=== PATIENT | male | born 1970 | race Caucasian/White ===

== ENCOUNTER 2024-05-29 10:35 | Inpatient (IN) | payer SELFPAY ==
[2024-05-29] VITALS (18 sets, daily range): BP systolic 122–185; BP diastolic 72–122; PULSE 73–109; RESP 15–30; TEMP 36.3–36.4; O2SAT 98–100; BMI 30.7; BMI 30.4
--- NOTE | ~2024-05-29 | MR_ITS ---
MRI of the brain Clinical History: CVA Technique: Axial and sagittal T1-weighted images were acquired. These were followed by axial T2-weigh deisi, diffusion weighted, gradient, and FLAIR images. Following intravenous administration of 20 cc Mu ltiHance gadolinium, T1-weighted fat-sat imaging was performed in the axial and coronal planes. Findings: There is subtle patchy restricted diffusion along the insular cortex region and external ca psule of the right cerebral and STIR, compatible with acute infarct. Remainder the brain is unremarka ble. Ventricles and subarachnoid spaces are unremarkable. Orbits are unremarkable. Paranasal sinuses and m astoid air cells are clear. Major flow voids are grossly intact. Sagittal midline structures are intact. No abnormal postcontrast enhancement identified. IMPRESSION: Acute infarct involving the right insular cortex region and right external capsule. Reviewed, dictated and finalized at location . ASS SPLITTER IMPRESSION: Acute infarct involving the right insular cortex region and right external caps ule.
--- NOTE | ~2024-05-29 | CT_ITS ---
CTA brain carotid Ordering provider: Tona Howell PA-C History: . facial droop . Comparison: None. Technique: CT angiogram head and neck was performed following timed intravenous injection of contrast . Thin slice axial images and reformatted coronal images were obtained. Three dimensional reformatted images of the brain were also obtained using a [employer] workstation. Radiation reduction technique ut ilized.The dose-length product was 1923.09 mGy-cm. 100 mL Omnipaque 350 was given IV. FINDINGS: HEAD: Small caliber of the left transverse dural sinus and sigmoid sinus versus thrombosis although this li abeba --ANTERIOR AND MIDDLE CEREBRAL ARTERIES AND BRANCHES: Normal caliber and contour. --INTERNAL CAROTID ARTERIES: Mild atheromatous disease but no significant stenosis. No occlusion. --BASILAR ARTERY AND BRANCHES: Normal caliber and contour. No atheromatous disease. --POSTERIOR CEREBRAL ARTERIES: Normal caliber and contour --POSTERIOR COMMUNICATING ARTERIES: Not visualized which is probably related to congenital absence or small size. --ANEURYSM: None visualized. --BRAIN: Normal. --BONES AND SUPERFICIAL SOFT TISSUES: Normal. --PARANASAL SINUSES AND MASTOIDS: Left maxillary sinus disease otherwise, Well aerated. NECK: --RIGHT CERVICAL CAROTID SYSTEM: Mild atheromatous disease of the carotid bulb and proximal internal carotid artery without significant stenosis. Percent stenosis per NASCET criteria is 10%. No carotid dissection. Otherwise, no significant atheromatous disease or stenosis of the cervical carotid syste m. --LEFT CERVICAL CAROTID SYSTEM: Mild atheromatous disease of the carotid bulb and proximal internal c arotid artery without significant stenosis. Percent stenosis per NASCET criteria is 10%. No carotid dissection. Otherwise, no significant atheromatous disease or stenosis of the cervical carotid system. --VERTEBRAL ARTERIES: Normal caliber and contour. Slight small caliber of the left vertebral artery i nside the cardiac silhouette atherosclerotic changes. --VISUALIZED AORTIC ARCH AND BRANCHING VESSELS: Mild atheromatous disease but no significant stenosis . --SOFT TISSUES: Normal. --CERVICAL SPINE: Age appropriate degenerative changes. IMPRESSION: 1. CTA head and neck. Percent stenosis per NASCET criteria is 10 % bilaterally. 2. No definite intracranial vascular occlusion or significant narrowing. Reviewed, dictated and finalized at location A. SHER NUMERAL IMPRESSION: 1. CTA head and neck. Percent stenosis per NASCET criteria is 10 % bilaterall y. 2. No definite intracranial vascular occlusion or significant narrowing.
--- NOTE | ~2024-05-29 | XR_ITS ---
Portable chest x-ray Comparison: None Clinical History: CVA Findings: Lungs are clear, without focal consolidation or pleural effusion. Cardiomediastinal silho uette is unremarkable. Bones and soft tissues are unremarkable. Impression: Clear lungs. Reviewed, dictated and finalized at location M. ER Impression: Clear lungs.
--- NOTE | 2024-05-29 11:07 | ECG_ITS ---
Test Date: 2024-05-29 11:21:02 Measurements Intervals [place] Rate: 98 P: 30 [place]: 140 QRS: -6 QRSD: 113 T: -60 QT: 366 QTc: 468 Interpretive Statements SINUS RHYTHM POSSIBLE LEFT ATRIAL ENLARGEMENT [-0.1mV P-WAVE IN V1/V2] INFERIOR MYOCARDIAL INFARCTION , OF INDETERMINATE AGE [40+ ms Q WAVE AND/OR ST/T ABNORMALITY IN II/aVF] ANTEROLATERAL MYOCARDIAL INFARCTION , OF INDETERMINATE AGE [40+ ms Q WAVE IN I/aVL/V3-V6] No previous ECG available for comparison Electronically Signed On 05-29-2024 18:59:43 DRAWING IN HAND by Anna Thrasher
--- NOTE | 2024-05-29 11:11 | PC.NURSE ---
pt refused to put on gown
[2024-05-29 11:15] LABS: Glucose Point of Care 353 mg/dl (65-105)
[2024-05-29 11:17] LABS: Basophils Percent Auto 0.1 % (0.2-1.2); Hematocrit 47.1 % (42.0-52.0); Hemoglobin 16.9 g/dL (14.0-18.0); Immature Granulocyte Absolute 0.02 K/mm3 (0.00-0.031); Immature Granulocyte Percent A 0.2 % (0-0.5); Lymphocytes Absolute Auto 0.85 K/mm3 (0.9-3.2); Lymphocytes Percent Auto 9.6 % (18.3-44.2); Mean Corpuscular HGB Conc 35.9 g/dl (32-36); Mean Corpuscular Hemoglobin 31.5 pg (26-34); Mean Corpuscular Volume 87.7 fl (80-100); Mean Platelet Volume 10.4 fl (7.4-10.4); Monocytes Absolute Auto 0.8 K/mm3 (0.1-0.6); Monocytes Percent Auto 8.5 % (2.6-8.5); Neutrophils Absolute Auto 7.2 K/mm3 (1.3-6.7); Neutrophils Percent Auto 81.6 % (45.5-73.1); Platelet Count Result 150 k/mm3 (150-375); Red Blood Count 5.37 M/mm3 (4.6-6.20); Red Cell Distribution Width 12.1 % (11.5-14.5); White Blood Count 8.9 K/mm3 (4.5-10.0)
--- NOTE | 2024-05-29 11:24 | ED_ITS ---
HPI - Neuro Symptoms/Deficit General Chief Complaint: Neuro Symptoms/Deficit Stated Complaint: left sided facial droop Time Seen by Provider: 05/29/24 11:24 Source: patient and family Mode of arrival: ambulatory Limitations: no limitations History of Present Illness HPI Narrative: 54 YEARS OLD WHITE MALE CAME TO THE ED BY PRIVATE CAR COMPLAINING OF LEFT FACIAL DROOPING, ABNORMAL FEELING OF THE LEFT HAND NOTICED THIS MORNING. LAST TIME PATIENT WAS SEEN BY HIS FAMILY AT HIS BASELINE AND 9:00 P.M. LAST NIGHT. AT 6:00 A.M. IN THE MORNING NOTED THAT THE PATIENT HAVE SLIGHT LEFT FACIAL DROOPING, PATIENT DROVE HIMSELF TO WORK, NOTICED SOME WEIRD FEELING AT THE TIPS OF THE LEFT FINGERS, LASTED FOR HALF AN HOUR THEN RESOLVED, WAS TOLD BY 1 OF HIS COLLEAGUE AT WORK THAT HE HAVE [facility] PALSY AND NEED TO GO TO THE HOSPITAL RIGHT NOW.. ON ARRIVAL TO THE ED PATIENT IS ASYMPTOMATIC HE DENIES ANY FEVER, CHILLS, CHEST PAIN, SHORTNESS OF BREATH, HEADACHE, FOCAL WEAKNESS, LAST TIME WAS SEEN BY A PHYSICIAN OVER 20 YEARS AGO. PATIENT DOES NOT SMOKE, DRINKS OCCASIONALLY, DOES NOT USE DRUGS. Related Data Allergies Allergy/AdvReac Type Severity Reaction Status Date / Time No Known Allergies Allergy Verified 05/29/24 10:59 Review of Systems 2 Review of Systems: All systems reviewed & are unremarkable except as noted in HPI and below Exam 2 Narrative: GENERAL APPEARANCE: WELL-DEVELOPED, WELL-NOURISHED SKIN: NORMAL COLOR HEAD: NORMOCEPHALIC, NONTRAUMATIC EYES: CLEAR CONJUNCTIVA ENT: OROPHARYNX NORMAL, EARS NORMAL, NOSE NORMAL NECK: SUPPLE, NONTENDER CHEST AND RESPIRATORY: AIRWAY PATENT, NO RESPIRATORY DISTRESS, NO ACCESSORY MUSCLE USE HEART: REGULAR RATE/RHYTHM ABDOMEN: SOFT, NONTENDER, NO ORGANOMEGALY, QUIET BOWEL SOUNDS VASCULAR: NORMAL PERIPHERAL PULSES, NORMAL CAPILLARY REFILL. MUSCULOSKELETAL: NORMAL RANGE OF MOTION, NONTENDER BACK NEUROLOGIC: ALERT AND ORIENTED ?3, SLIGHT LEFT FACIAL DROOPING, NO GROSS MOTOR DEFICIT Course Reevaluation(s) Reevaluation #1: CURRENTLY PATIENT STILL ASYMPTOMATIC IN DENYING ANY FOCAL NEURO DEFICIT, FOCAL SENSORY DEFICIT OR FOCAL WEAKNESS OR CHEST PAIN OR SHORTNESS OF BREATH OR BACK PAIN. PATIENT IS VERY FRUSTRATED, HE DOES NOT BELIEVE THAT HE NEED TO BE HOSPITALIZED BECAUSE HE IS FEELING GREAT. Date: 05/29/24 Time: 15:24 Consultations Consultation #1: DR. NICOLE Date: 05/29/24 Time: 14:32 Consultation #2: DR. SINGH ADMIT TO HOSPITALIST Date: 05/29/24 Time: 14:33 Consultation #3: DR SINGH IT IS OKAY TO START PATIENT ON HEPARIN FOR IN STEMI. GET MRI OF THE BRAIN IN THE MORNING. Date: 05/29/24 Time: 15:26 Vital Signs Vital signs: Vital Signs Temperature 36.3 C L 05/29/24 10:53 Pulse Rate 109 H 05/29/24 10:53 Respiratory Rate 22 H 05/29/24 10:53 Blood Pressure 185/113 H 05/29/24 10:53 Pulse Oximetry 98 05/29/24 10:53 Oxygen Delivery Room Air 05/29/24 10:53 Temperature 36.3 C L 05/29/24 10:53 Pulse Rate 93 05/29/24 14:21 Respiratory Rate 16 05/29/24 14:21 Blood Pressure 162/98 H 05/29/24 14:21 Pulse Oximetry 99 05/29/24 14:21 Oxygen Delivery Room Air 05/29/24 10:53 MDM - Neuro Symptoms/Deficit MDM Narrative Medical decision making narrative: PATIENT CAME TO THE ED BY PRIVATE CAR WITH LEFT FACIAL DROOPING AND LEFT FINGERS WEIRD FEELING NOTICED SPEECH ASSISTANT TODAY. PATIENT IS HEALTHY OTHERWISE, DOES NOT TAKE MEDICINE AT HOME, LAST TIME WAS SEEN BY A PHYSICIAN OVER 20 YEARS. VITAL SIGNS SHOWING BLOOD PRESSURE 185/113, HEART RATE 109, RESPIRATION 22, TEMPERATURE 36.3? PHYSICAL EXAMINATION IS CONSISTENT WITH SLIGHT LEFT FACIAL DROOPING OTHERWISE NO OTHER NEUROLOGIC ABNORMALITIES. DIFFERENTIAL DIAGNOSIS INCLUDE CVA, TIA, HYPERTENSION, ELECTROLYTE ABNORMALITIES BLOOD WORKUP TODAY INCLUDES CBC, CMP, TROPONIN, PT PTT SHOWED SODIUM IS 134, GLUCOSE 345, TOTAL BILIRUBIN 1.5, TROPONIN 2.0 BETA HYDROXYBUTYRATE 0.71 URINALYSIS SHOWED 1+ PROTEIN, 3+ GLUCOSE, 2+ KETONE Differential Diagnosis Differential diagnosis: Likely other (NEW ONSET DIABETES, UNCONTROLLED HYPERTENSION, ACUTE CVA, TIA,) Medical Records Attestation: I reviewed the patient's medical records. Lab Data Attestation: I reviewed the patient's lab results. 05/29/24 11:09 05/29/24 11:09 Labs: Lab Results 05/29/24 05/29/24 05/29/24 Range/Units 11:09 11:12 13:07 WBC 8.9 (4.5-10.0) K/mm3 RBC 5.37 (4.6-6.20) M/mm3 Hgb 16.9 (14.0-18.0) g/dL Hct 47.1 (42.0-52.0) % MCV 87.7 (80-100) fl MCH 31.5 (26-34) pg MCHC 35.9 (32-36) g/dl RDW 12.1 (11.5-14.5) % Plt Count 150 (150-375) k/mm3 MPV 10.4 (7.4-10.4) fl Immature Gran % (Auto) 0.2 (0-0.5) % Neut % (Auto) 81.6 H (45.5-73.1) % Lymph % (Auto) 9.6 L (18.3-44.2) % [place] % (Auto) 8.5 (2.6-8.5) % Eos % (Auto) 0.0 (0-4.4) % Baso % (Auto) 0.1 L (0.2-1.2) % Lymph # (Auto) 0.85 L (0.9-3.2) K/mm3 [place] # (Auto) 0.8 H (0.1-0.6) K/mm3 Eos # (Auto) 0.0 (0-0.3) K/mm3 Baso # (Auto) 0.0 (0.0-0.1) K/mm3 Abs Immat Gran (auto) 0.02 (0.00-0.031) K/mm3 Absolute Neuts (auto) 7.2 H (1.3-6.7) K/mm3 Absolute Nucleated RBC 0.000 (0.0-0.012) K/mm3 Nucleated RBC % 0.0 (0.0-0.2) % PT 13.1 (11.1-14.7) Seconds INR 1.0 APTT 25.3 (22.3-36.8) Seconds Sodium 134 L (137-145) mmol/L Potassium 4.3 (3.4-5.0) mmol/L Chloride 100 (98-107) mmol/L Carbon Dioxide 25 (22-30) mmol/L Anion Gap 9 (4-12) mmol/L BUN 15 (9-20) mg/dL Creatinine 0.70 (0.7-1.3) mg/dL Estim Creat Clear Calc 119 ml/min Estimated GFR > 60 (59 - ) Glucose 345 H (65-110) mg/dL POC Capillary Glucose 353 H (65-105) mg/dl Hemoglobin A1c 11.2 H (<5.7) % Calcium 9.4 (8.4-10.2) mg/dL Total Bilirubin 1.5 H (0.2-1.3) mg/dL AST 47 (17-59) U/L ALT 32 (6-50) U/L Alkaline Phosphatase 98 (38-126) U/L Troponin I 2.000 H* (0.000-0.034) ng/mL Total Protein 8.0 (6.3-8.2) g/dL Albumin 4.7 (3.5-5.1) g/dL Beta-Hydroxybutyrate/Acetoacetate 0.71 H (0.02-0.27) mmol/L Urine Color Yellow (Yellow) Urine Appearance Clear (Clear) Urine pH 5.5 (5.0-9.0) Ur Specific [place] > 1.045 H (1.001-1.035) Urine Protein 1+ H (Negative) mg/dL Urine Glucose (UA) 3+ H (Negative) mg/dL Urine Ketones 2+ H (Negative) mg/dL Ur Blood (Man) Negative (Negative) Urine Nitrate Negative (Negative) Urine Bilirubin Negative (Negative) Urine Urobilinogen 0.2 (<2.0) mg/dL Add Ur Microanalysis Reviewed Leukocyte Esterase Rfl Negative (Negative) STACIA/UL Urine RBC 0-2 (0-2) /hpf Urine WBC 0-5 (0-3) /hpf Ur Squamous Epith Cells None seen (Few) /hpf Urine Bacteria None seen /hpf Urine Casts 0-2 05/29/24 Range/Units 14:45 WBC (4.5-10.0) K/mm3 RBC (4.6-6.20) M/mm3 Hgb (14.0-18.0) g/dL Hct (42.0-52.0) % MCV (80-100) fl MCH (26-34) pg MCHC (32-36) g/dl RDW (11.5-14.5) % Plt Count (150-375) k/mm3 MPV (7.4-10.4) fl Immature Gran % (Auto) (0-0.5) % Neut % (Auto) (45.5-73.1) % Lymph % (Auto) (18.3-44.2) % [place] % (Auto) (2.6-8.5) % Eos % (Auto) (0-4.4) % Baso % (Auto) (0.2-1.2) % Lymph # (Auto) (0.9-3.2) K/mm3 [place] # (Auto) (0.1-0.6) K/mm3 Eos # (Auto) (0-0.3) K/mm3 Baso # (Auto) (0.0-0.1) K/mm3 Abs Immat Gran (auto) (0.00-0.031) K/mm3 Absolute Neuts (auto) (1.3-6.7) K/mm3 Absolute Nucleated RBC (0.0-0.012) K/mm3 Nucleated RBC % (0.0-0.2) % PT (11.1-14.7) Seconds INR APTT (22.3-36.8) Seconds Sodium (137-145) mmol/L Potassium (3.4-5.0) mmol/L Chloride (98-107) mmol/L Carbon Dioxide (22-30) mmol/L Anion Gap (4-12) mmol/L BUN (9-20) mg/dL Creatinine (0.7-1.3) mg/dL Estim Creat Clear Calc ml/min Estimated GFR (59 - ) Glucose (65-110) mg/dL POC Capillary Glucose (65-105) mg/dl Hemoglobin A1c (<5.7) % Calcium (8.4-10.2) mg/dL Total Bilirubin (0.2-1.3) mg/dL AST (17-59) U/L ALT (6-50) U/L Alkaline Phosphatase (38-126) U/L Troponin I Pending (0.000-0.034) ng/mL Total Protein (6.3-8.2) g/dL Albumin (3.5-5.1) g/dL Beta-Hydroxybutyrate/Acetoacetate (0.02-0.27) mmol/L Urine Color (Yellow) Urine Appearance (Clear) Urine pH (5.0-9.0) Ur Specific [place] (1.001-1.035) Urine Protein (Negative) mg/dL Urine Glucose (UA) (Negative) mg/dL Urine Ketones (Negative) mg/dL Ur Blood (Man) (Negative) Urine Nitrate (Negative) Urine Bilirubin (Negative) Urine Urobilinogen (<2.0) mg/dL Add Ur Microanalysis Leukocyte Esterase Rfl (Negative) STACIA/UL Urine RBC (0-2) /hpf Urine WBC (0-3) /hpf Ur Squamous Epith Cells (Few) /hpf Urine Bacteria /hpf Urine Casts ABG Data ABG results: 05/29/24 11:45 VBG pH 7.356 VBG pCO2 44.4 VBG pO2 32.5 L VBG HCO3 24.3 O2 Delivery Device Room air O2 Liters/Min 0.0 FiO2 21 Imaging Data Radiologist's impression: Impressions Chest X-Ray 05/29/24 11:34 Impression: Clear lungs. Head/Neck CTA 05/29/24 12:48 IMPRESSION: 1. CTA head and neck. Percent stenosis per NASCET criteria is 10 % bilaterally. 2. No definite intracranial vascular occlusion or significant narrowing. Critical Care Time Critical Care Time Critical Care Time: Yes Total Critical Care Time: 30 Discharge Plan Discharge Clinical Impression: Cerebrovascular accident, Hypertension, Acute hyperglycemia Patient Disposition: Still a Patient Condition: Stable Patient Language: Latvian Follow-up/Referrals: PHYSICIAN,CUSTOMER SUPPLY COORDINATOR [Non-Staff] - Quality Stroke Date of last known normal: 05/29/24 Stroke Scale Stroke Scale 1: Stroke scale date:: 05/29/24 1a Level of consciousness: alert-0 1b Level of consciousness questions: answers both correctly-0 1c Level of consciousness commands: obeys both correctly-0 2 Best gaze: normal-0 3 Visual: no visual loss-0 4 Facial palsy: minor paralysis-1 5a Motor: left arm: no drift-0 5b Motor: right arm: no drift-0 6a Motor: left leg: no drift-0 6b Motor: right leg: no drift-0 7 Limb ataxia: absent-0 8 Sensory: normal-0 9 Best language: no aphasia-0 10 Dysarthria: normal-0 11 Extinction and inattention: no abnormality-0 Level:: 1
[2024-05-29 11:29] LABS: Prothrombin Time 13.1 Seconds (11.1-14.7)
[2024-05-29 11:30] LABS: Partial Thromboplastin Time 25.3 Seconds (22.3-36.8)
[2024-05-29 11:32] LABS: Alanine Aminotransferase 32 U/L (6-50); Albumin Level 4.7 g/dL (3.5-5.1); Alkaline Phosphatase 98 U/L (38-126); Anion Gap 9 mmol/L (4-12); Aspartate Amino Transferase 47 U/L (17-59); Bilirubin,Total 1.5 mg/dL (0.2-1.3); Blood Urea Nitrogen 15 mg/dL (9-20); Calcium 9.4 mg/dL (8.4-10.2); Carbon Dioxide 25 mmol/L (22-30); Chloride 100 mmol/L (98-107); Estimated CRCL calculation 119 ml/min; Estimated Glomerular Filt Rate > 60; Glucose 345 mg/dL (65-110); Potassium 4.3 mmol/L (3.4-5.0); Sodium 134 mmol/L (137-145)
[2024-05-29 11:52] LABS: Fractional Inspired Oxygen 21 %; HCO3 VBG 24.3 mEq/l (24.0-30.0); PCO2 VBG 44.4 mmHg (42.0-48.0); PO2 VBG 32.5 mmHg (35.0-45.0)
[2024-05-29 11:54] LABS: Device ROOM AIR; pH VBG 7.356 (7.300-7.400)
[2024-05-29] MEDS: METOPROLOL TARTRATE INJ 5 MG/5 ML VIAL 10 MG IV PUSH (11:59)
[2024-05-29] MEDS: SODIUM CHLORIDE 0.9% IV 1,000 ML 999 ML IV CONT (11:59)
[2024-05-29 12:06] LABS: Beta-Hydroxybutyrate/Acetoacetate 0.71 mmol/L (0.02-0.27)
[2024-05-29 12:09] LABS: Hemoglobin A1C 11.2 % (<5.7)
[2024-05-29 13:31] LABS: Add Urine Microscopic? YES; Appearance Urine Clear (Clear); Bacteria Urine None Seen /hpf; Bilirubin Urine Negative (Negative); Blood Urine Negative (Negative); Color Urine Yellow (Yellow); Glucose Urine UA 3+ mg/dL (Negative); Ketones Urine 2+ mg/dL (Negative); Leukocyte Esterase Ur Negative LEU/UL (Negative); Need Manual Microscopic Reviewed; Nitrate Urine Negative (Negative); Non Pathogenic Casts 0-2; Protein Urine 1+ mg/dL (Negative); RBC Urine 0-2 /hpf (0-2); Specific Grav Ur > 1.045 (1.001-1.035); Squamous Epithelial Cell Urine None Seen /hpf (Few); Urobilinogen Urine 0.2 mg/dL (<2.0); WBC Urine 0-5 /hpf (0-3); pH Urine 5.5 (5.0-9.0)
[2024-05-29] MEDS: ASPIRIN 81 MG CHEWABLE TABLET 324 MG PO (14:19)
--- NOTE | 2024-05-29 14:34 | ECG_ITS ---
Test Date: 2024-05-29 14:50:17 Measurements Intervals [place] Rate: 83 P: 45 [place]: 142 QRS: 8 QRSD: 95 T: -67 QT: 415 QTc: 490 Interpretive Statements SINUS RHYTHM POSSIBLE LEFT ATRIAL ENLARGEMENT [-0.1mV P-WAVE IN V1/V2] SUSPECT RECENT INF-LAT mi Compared to ECG 05/29/2024 11:21:02 No significant changes Electronically Signed On 05-29-2024 19:02:45 FACING MACHINE OPERATOR by Anna Thrsaher
[2024-05-29 15:40] LABS: Glucose Point of Care 275 mg/dl (65-105)
[2024-05-29] MEDS: HEPARIN SOD/D5W 100 UNITS/ML 25,000 UNITS/250 ML BAG 10 UNITS IV CONT (15:42)
[2024-05-29] MEDS: HEPARIN SODIUM 5,000 UNITS/ML VIAL 4000 UNITS IV PUSH ×2 (15:42→23:32)
[2024-05-29] MEDS: METOPROLOL TARTRATE INJ 5 MG/5 ML VIAL IV PUSH ×3 (16:28→16:39)
[2024-05-29] MEDS: ATORVASTATIN 40 MG TABLET PO (16:38)
[2024-05-29 16:56] LABS: Basophils Percent Auto 0.2 % (0.2-1.2); Eosinophils Percent Auto 0.2 % (0-4.4); Hematocrit 44.3 % (42.0-52.0); Immature Granulocyte Absolute 0.03 K/mm3 (0.00-0.031); Immature Granulocyte Percent A 0.4 % (0-0.5); Lymphocytes Absolute Auto 1.17 K/mm3 (0.9-3.2); Lymphocytes Percent Auto 13.8 % (18.3-44.2); Mean Corpuscular HGB Conc 36.1 g/dl (32-36); Mean Corpuscular Hemoglobin 31.7 pg (26-34); Mean Corpuscular Volume 87.7 fl (80-100); Mean Platelet Volume 10.8 fl (7.4-10.4); Monocytes Absolute Auto 0.8 K/mm3 (0.1-0.6); Neutrophils Absolute Auto 6.5 K/mm3 (1.3-6.7); Neutrophils Percent Auto 76.4 % (45.5-73.1); Platelet Count Result 151 k/mm3 (150-375); Red Blood Count 5.05 M/mm3 (4.6-6.20); Red Cell Distribution Width 12.1 % (11.5-14.5); White Blood Count 8.5 K/mm3 (4.5-10.0)
--- NOTE | 2024-05-29 17:09 | P.HP_ITS ---
H&P: HPI History of Present Illness Date/Time: 05/29/24 17:09 Chief Complaint: Left Sided Facial Droop, Dysarthria Narrative: 54 y/o M presents here with left-sided facial droop and dysarthria with no significant (known) past medical history. The patient presents here via personal vehicle for further evaluation of left- sided facial droop, numbness to left hand, and slurred speech. The patient was last seen at his baseline at 9:00 p.m. last night (05/28). Patient woke this morning around 06:00 a.m.. Per the patient's , she noted he that he had a mild left facial droop around 6:00 a.m. She did not notice any dysarthria. Patient also reports noticing that he had numbness/odd sensation to the tips of his left fingers which lasted for approximately 30 minutes and resolved without intervention. Did have some difficulty screwing a cap on this morning dropping the cap. The patient elected to go to work driving himself there, arrived around 7-7:15. Around 07:40 a.m. his coworker noted drooping to his left lip and speech changes. Patient elected to come to the ER for further evaluation after a co-worker raise concerns for Maldonado's Palsy. The patient is currently not reporting any dysarthria (has soft sh quality to s sounds at baseline) or focal numbness/weakness. Denies vision changes, headache, dizziness, changes in gait, balance disturbance, ataxia. He does not follow with a PCP, last saw a provider over 20 years ago. Denies tobacco use. Occasional EtOH use - 2-3 times per week, 2-3. Denies recreational drug use. Denies polydipsia, polyuria, fatigue, chest pain, shortness of breath, diaphoresis, nausea, vomiting, increased hunger, GERD-like symptoms, dizziness, or pre-syncope. Initial VS at presentation: 97.4? F, HR 109, RR 22, 185/113, 98% on RA. ED workup showed: No leukocytosis, no anemia, normal coags, pH normal on VBG, sodium 134, creatinine 0.7 and GFR >60, initial glucose 345, A1c 11.2, initial troponin 2.0, beta hydroxy 0.71. UA showed high specific gravity, 1+ protein, 3+ glucose, 2+ ketones otherwise no indicators for UTI. CXR showed clear lungs and unremarkable cardiomediastinal silhouette. Head/neck CTA showed 10% stenosis per NASCET criteria and no definite intracranial vascular occlusion or significant narrowing. Initial EKG showed sinus rhythm, rate 98, possible left atrial enlargement, inferior AK of indeterminate age, anterolateral AK of indeterminate age (no EKG available for comparison and awaiting formal read). Review of Systems Review of Systems: All systems reviewed & are unremarkable except as noted in HPI and below [facility] Family History Family History Mother Hypertension Diabetes mellitus Cardiac dysrhythmia Father Hypertension Cerebrovascular accident Grandparent Dementia Social History Social History Smoking status: Never smoker Alcohol intake: current Drinks per week: 4 Substance use: never Do You Feel Safe in your Home?: Yes Lack of Transportation: No Lack of Food: Never True Current Housing: I Have Housing Concerned About Future Housing: No Difficulty Paying Gas/Electric Bills: No Difficulty Paying for Meds: No Currently Unemployed: No Education: Bachelor's Degree Difficulty w/ Childcare or Family Care: No Spiritual care concerns: No Meds Home Medications and Allergies Home Medications ?Medication ?Instructions ?Recorded ?Confirmed ?Type No Home Medications 05/30/24 05/30/24 History Allergies Allergy/AdvReac Type Severity Reaction Status Date / Time No Known Allergies Allergy Verified 05/29/24 10:59 Vital Signs Vital Signs - 24 hr 05/29/24 10:53 05/29/24 10:59 05/29/24 11:58 Temperature 97.4 F L Pulse Rate 109 H 104 H 104 H Respiratory Rate 22 H 17 20 Blood Pressure 185/113 H 185/113 H 181/107 H Pulse Oximetry 98 98 Oxygen Delivery Room Air 05/29/24 11:59 05/29/24 11:59 05/29/24 12:07 Temperature Pulse Rate 102 H 102 H 82 Respiratory Rate 30 H 22 H Blood Pressure 181/107 H 150/103 H Pulse Oximetry 98 Oxygen Delivery 05/29/24 12:17 05/29/24 13:09 05/29/24 14:21 Temperature Pulse Rate 80 81 93 Respiratory Rate 22 H 20 16 Blood Pressure 152/122 H 144/118 H 162/98 H Pulse Oximetry 100 99 Oxygen Delivery 05/29/24 16:28 05/29/24 16:28 05/29/24 16:33 Temperature Pulse Rate 86 75 Respiratory Rate Blood Pressure 159/88 H Pulse Oximetry Oxygen Delivery 05/29/24 16:33 05/29/24 16:38 05/29/24 16:39 Temperature Pulse Rate 73 Respiratory Rate Blood Pressure 148/88 H 136/91 H Pulse Oximetry Oxygen Delivery Exam Narrative: very minimal left facial droop. otherwise normal exam. Const: General: comfortable and no acute distress Other: , male, nontoxic appearance HENMT: Face/Nose/Sinus: Normal nares present Mouth: Yes moist mucous membranes Eyes: General: appearance normal, both eyes and all related structures Sclera: sclerae normal Pupils: Equal, round and reactive pupils present EOM: EOMs intact bilaterally Resp: Effort & Inspection: normal respiratory effort Auscultation: clear to auscultation bilaterally Cardio: Rate: regular rate Rhythm: regular rhythm Other: S1-S2 present without murmur, rub, ectopy GI: Other: Abdomen soft, nondistended, nontender. Normoactive bowel sounds in all quadrants. Skin: General skin exam: normal color and no rashes or lesions noted Other: Healing wound with no active drainage or erythema to medial malleolus of right lower extremity. Neuro: Other: Initial NIHSS 1a: Level of Consciousness 0 1b: LOC Questions 0 1c:?LOC Tasks 0 2:?Best Gaze 0 3:?Visual?[place] 0 4: Facial Palsy 1 (minimal left facial d clifford) 5a: Motor Arm?R 0 5b: Motor Arm L 0 6a:?Motor Leg R 0 6a:?Motor Leg L 0 7: Limb Ataxia 0 8: Sensation 0 9:?Language/Aphasia 0 10:?Dysarthria? 0 11: Extinction and Inattention 0 Total: 1 Patient moving all extremities, A&O x4, no numbness or tingling. Very slight facial droop to left with no flattening of the nasolabial fold. No gaze palsy. horizontal nystagmus (patient denied dizziness) noted with gaze exam. Extrem: General: normal to inspection Psych: Mental Status: mental status grossly normal Affect: Hostile affect present Attitude: Belligerent attititude/behavior present H&P: Results Labs Labs: Short CBC 05/29/24 Range/Units 11:09 WBC 8.9 (4.5-10.0) K/mm3 Hgb 16.9 (14.0-18.0) g/dL Hct 47.1 (42.0-52.0) % Plt Count 150 (150-375) k/mm3 BMP 05/29/24 11:09 Sodium 134 L Potassium 4.3 Chloride 100 Carbon Dioxide 25 BUN 15 Creatinine 0.70 Glucose 345 H Calcium 9.4 Cardiac Enzymes 05/29/24 05/29/24 Range/Units 11:09 14:45 Troponin I 2.000 H* 3.100 H* D (0.000-0.034) ng/mL Liver Function 05/29/24 Range/Units 11:09 Total Bilirubin 1.5 H (0.2-1.3) mg/dL AST 47 (17-59) U/L ALT 32 (6-50) U/L Alkaline Phosphatase 98 (38-126) U/L Albumin 4.7 (3.5-5.1) g/dL Urine 05/29/24 Range/Units 13:07 Urine Color Yellow (Yellow) Urine Appearance Clear (Clear) Urine pH 5.5 (5.0-9.0) Ur Specific [place] > 1.045 H (1.001-1.035) Urine Protein 1+ H (Negative) mg/dL Urine Glucose (UA) 3+ H (Negative) mg/dL Assessment and Plan Assessment and plan (1) NSTEMI (non-ST elevated myocardial infarction): Code(s): I21.4 - Non-ST elevation (NSTEMI) myocardial infarction Status: Acute Assessment and Plan: - EKG, initial: Sinus rhythm, rate 98, possible left atrial enlargement, inferior AK of indeterminate age, anterolateral AK of indeterminate age. No previous EKG available for comparison, awaiting formal read. - EKG, repeat (1): Sinus rhythm, rate 83, possible left atrial enlargement, inferior AK of indeterminate age, anterolateral AK probably recent. Reading acute AK. awaiting formal read, however ED provider reviewed EKG and does not believe patient has acute AK/acute ST elevations. - CXR: clear lungs - Troponin: 2.0 -> 3.1 -> 3.8 - ASA 324 given, SL nitro PRN - cardiology consulted, awaiting recs - started on heparin gtt - add lipid panel - echo w/bubble study and TSH ordered (c/f CVA as well, see below) - no stress test or cardiac catheterization on file - heart healthy, NPO at midnight in case of need for procedures - telemetry monitoring with admission to IMU (2) Cerebrovascular accident: Qualifiers: CVA mechanism: unspecified Qualified Code(s): I63.9 - Cerebral infarction, unspecified Code(s): I63.9 - Cerebral infarction, unspecified Status: Acute Assessment and Plan: New deficits of left facial droop and dysarthria starting on 05/29 noted around 6-7 a.m. Last known well at 9:00 p.m. on 05/28/2024. - admission for observation and telemetry - not candidate for thrombolytics due to timeframe - not candidate for thrombectomy, no LVO on CTA - CTA 1. CTA head and neck. Percent stenosis per NASCET criteria is 10 % bilater ally. 2. No definite intracranial vascular occlusion or significant narrowing. - neurology consulted, awaiting formal recs - brain MRI ordered - echo w/Bubble ordered - neuro checks Q4 - speech/swallow eval, patient refusal - PT/OT to eval and treat, patient refusal - monitor daily labs - add lipid panel, A1C completed and elevated (see below) - bed rest, fall precautions - start Atorvastatin 40 mg PO and ASA 81 mg daily. - currently requiring heparin drip for NSTEMI, will hold on initiating Plavix. - consider 30 day event monitoring at discharge - reporting that she does note snoring at night, patient is refusing apnea link/sleep study stating that even if he qualifies for a CPAP he will not wear it (3) DM2 (diabetes mellitus, type 2): Qualifiers: Diabetes mellitus complication status: with hyperglycemia Diabetes mellitus senior living insulin use: without senior living use Qualified Code(s): E11.65 - Type 2 diabetes mellitus with hyperglycemia Code(s): E11.9 - Type 2 diabetes mellitus without complications Status: Acute Assessment and Plan: New diagnosis of diabetes. A1C 11.2% on 05/29/24. - hypoglycemia protocol - POC blood glucose ACHS - start Lantus 27u (0.25 units/kg, based off BMI) - correct regimen ordered - moderate dose TIDWM, based off BMI - family educator consulted - dietitian consulted (4) Hypertension: Qualifiers: Hypertension type: unspecified Qualified Code(s): I10 - Essential (primary) hypertension Code(s): I10 - Essential (primary) hypertension Status: Acute Assessment and Plan: New dx of HTN, initial BP 185/111. Currently 136/91 post-admin of metoprolol IVP 10 mg x1 and 5 mg x3. - started on Lopressor 25 mg b.i.d. - cardiology consulted, awaiting formal recs - monitor Plan Extended time spent with patient and his educating him on new diagnoses and treatment plan as well as the physical exam. Time approximately spent: 90 minutes. Additional time was spent in in direct patient care including dec ision-making, review of medical records, review of labs and imaging, discussion with nursing staff and other providers for collaborative, critical management of this patient. Diet: Heart healthy, NPO at midnight GI Prophylaxis: Not currently indicated DVT Prophylaxis: Heparin gtt Lines: Peripheral Code Status: Full code Quality VTE Prophylaxis VTE prophylaxis: pharmacologic ordered Hospitalist [facility] Advance Care Plan I have confirmed that the patient's Advanced Care Plan is present, code status is documented, or surrogate decision maker is listed in patient medical record.: Yes Medication Reconciliation I have utilized all available resources to obtain, update and review the patients current medications (includes all prescriptions, OTC, herbals, cannabis, and nutritional supplements).: Yes
[2024-05-29] MEDS: SODIUM CHLORIDE 0.9% IV 1,000 ML 150 ML IV CONT ×2 (17:34→23:26)
--- NOTE | 2024-05-29 19:00 | ECG_ITS ---
Test Date: 2024-05-29 19:05:18 Measurements Intervals [place] Rate: 76 P: 30 [place]: 143 QRS: -2 QRSD: 98 T: -78 QT: 422 QTc: 475 Interpretive Statements SINUS RHYTHM RECENT iNF-LAT MS Compared to ECG 05/29/2024 14:50:17 Myocardial infarct finding now present Electronically Signed On 05-29-2024 19:06:41 WOUND CARE RN by Anna Thrasher
--- NOTE | 2024-05-29 19:08 | PM.CNCAR ---
Assessment and Plan Assessment and plan (1) NSTEMI (non-ST elevated myocardial infarction): Code(s): I21.4 - Non-ST elevation (NSTEMI) myocardial infarction Status: Acute (2) Hypertension: Qualifiers: Hypertension type: unspecified Qualified Code(s): I10 - Essential (primary) hypertension Code(s): I10 - Essential (primary) hypertension Status: Acute Plan 1. NSTEMI CARLI Score 3 2. Hypertension 3. Hyperlipidemia 4. Newly diagnosed diabetes mellitus, his HbA1c 11.2 5. Suspected CVA -consider heparin infusion if okay with Neurology -will start on aspirin 81 mg and atorvastatin 80 mg p.o. once a day -echo tomorrow to assess for wall motion and LV systolic function -discussed with the patient regarding left heart catheterization and coronary angiography. He declined any invasive evaluation for now. He understood the risks of not undergoing any invasive evaluation or possible PCI if needed History of Present Illness History of Present Illness Consult date/time: 05/29/24 19:08 Reason For Visit: hypertension, hyperglycemia, CVA, elevated troponi Narrative: Mr Josse Shafer is a 54-year-old gentleman with no significant past medical history. He was admitted initially with a suspected stroke and accelerated hypertension. Cardiology consulted for elevated troponins and EKG changes He denies any chest pain, dyspnea at the time of my evaluation or even in the previous 1-2 weeks Troponin peaked at 3.8 EKG reviewed by me personally and is suggestive of a recent inferior wall AL Denies any prior CAD, CVA or AL Denies any bleeding from any source Review of Systems Review of Systems: All systems reviewed & are unremarkable except as noted in HPI and below [facility] Family History Family History Mother Hypertension Diabetes mellitus Cardiac dysrhythmia Father Hypertension Cerebrovascular accident Grandparent Dementia Social History Social History Smoking status: Never smoker Alcohol intake: current Drinks per week: 4 Substance use: never Do You Feel Safe in your Home?: Yes Lack of Transportation: No Lack of Food: Never True Current Housing: I Have Housing Concerned About Future Housing: No Difficulty Paying Gas/Electric Bills: No Difficulty Paying for Meds: No Currently Unemployed: No Education: Bachelor's Degree Difficulty w/ Childcare or Family Care: No Spiritual care concerns: No Meds Home Medications and Allergies Home Medications ?Medication ?Instructions ?Recorded ?Confirmed ?Type No Home Medications 05/30/24 05/30/24 History Allergies Allergy/AdvReac Type Severity Reaction Status Date / Time No Known Allergies Allergy Verified 05/29/24 10:59 Vital Signs Vital Signs - 24 hr 05/29/24 10:53 05/29/24 10:59 05/29/24 11:58 Temperature 36.3 C L Pulse Rate 109 H 104 H 104 H Respiratory Rate 22 H 17 20 Blood Pressure 185/113 H 185/113 H 181/107 H Pulse Oximetry 98 98 Oxygen Delivery Room Air 05/29/24 11:59 05/29/24 11:59 05/29/24 12:07 Temperature Pulse Rate 102 H 102 H 82 Respiratory Rate 30 H 22 H Blood Pressure 181/107 H 150/103 H Pulse Oximetry 98 Oxygen Delivery 05/29/24 12:17 05/29/24 13:09 05/29/24 14:21 Temperature Pulse Rate 80 81 93 Respiratory Rate 22 H 20 16 Blood Pressure 152/122 H 144/118 H 162/98 H Pulse Oximetry 100 99 Oxygen Delivery 05/29/24 16:28 05/29/24 16:28 05/29/24 16:33 Temperature Pulse Rate 86 75 Respiratory Rate Blood Pressure 159/88 H Pulse Oximetry Oxygen Delivery 05/29/24 16:33 05/29/24 16:38 05/29/24 16:39 Temperature Pulse Rate 73 Respiratory Rate Blood Pressure 148/88 H 136/91 H Pulse Oximetry Oxygen Delivery Exam Narrative: GENERAL APPEARANCE: WELL-DEVELOPED, WELL-NOURISHED SKIN: NORMAL COLOR HEAD: NORMOCEPHALIC, NONTRAUMATIC EYES: CLEAR CONJUNCTIVA ENT: OROPHARYNX NORMAL, EARS NORMAL, NOSE NORMAL NECK: SUPPLE, NONTENDER CHEST AND RESPIRATORY: AIRWAY PATENT, NO RESPIRATORY DISTRESS, NO ACCESSORY MUSCLE USE HEART: REGULAR RATE/RHYTHM ABDOMEN: SOFT, NONTENDER, NO ORGANOMEGALY, QUIET BOWEL SOUNDS VASCULAR: NORMAL PERIPHERAL PULSES, NORMAL CAPILLARY REFILL. MUSCULOSKELETAL: NORMAL RANGE OF MOTION, NONTENDER BACK NEUROLOGIC: ALERT AND ORIENTED ?3, SLIGHT LEFT FACIAL DROOPING, NO GROSS MOTOR DEFICIT Const: General: comfortable and no acute distress Other: , male, nontoxic appearance HENMT: Face/Nose/Sinus: Normal nares present Mouth: Yes moist mucous membranes Eyes: General: appearance normal, both eyes and all related structures Sclera: sclerae normal Pupils: Equal, round and reactive pupils present EOM: EOMs intact bilaterally Resp: Effort & Inspection: normal respiratory effort Auscultation: clear to auscultation bilaterally Cardio: Rate: regular rate Rhythm: regular rhythm Other: S1-S2 present without murmur, rub, ectopy GI: Other: Abdomen soft, nondistended, nontender. Normoactive bowel sounds in all quadrants. Skin: General skin exam: normal color and no rashes or lesions noted Other: Healing wound with no active drainage or erythema to medial malleolus of right lower extremity. Neuro: Cranial nerves: Yes Equal, round and reactive pupils present Other: Initial NIHSS 1a: Level of Consciousness 0 1b: LOC Questions 0 1c:?LOC Tasks 0 2:?Best Gaze 0 3:?Visual?[place] 0 4: Facial Palsy 1 (minimal left facial droop) 5a: Motor Arm?R 0 5b: Motor Arm L 0 6a:?Motor Leg R 0 6a:?Motor Leg L 0 7: Limb Ataxia 0 8: Sensation 0 9:?Language/Aphasia 0 10:?Dysarthria? 0 11: Extinction and Inattention 0 Total: 1 Patient moving all extremities, A&O x4, no numbness or tingling. Very slight facial droop to left with no flattening of the nasolabial fold. No gaze palsy. horizontal nystagmus (patient denied dizziness) noted with gaze exam. Extrem: General: normal to inspection Psych: Mental Status: mental status grossly normal Affect: Hostile affect present Attitude: Belligerent attititude/behavior present Results Labs and Meds 05/30/24 05:38 05/30/24 05:38 Lab results: Cardiac Enzymes 05/29/24 05/29/24 Range/Units 11:09 14:45 AST 47 (17-59) U/L Troponin I 2.000 H* 3.100 H* D (0.000-0.034) ng/mL Coagulation 05/29/24 Range/Units 11:09 PT 13.1 (11.1-14.7) Seconds APTT 25.3 (22.3-36.8) Seconds CBC 05/29/24 05/29/24 Range/Units 11:09 16:36 WBC 8.9 8.5 (4.5-10.0) K/mm3 RBC 5.37 5.05 (4.6-6.20) M/mm3 Hgb 16.9 16.0 (14.0-18.0) g/dL Hct 47.1 44.3 (42.0-52.0) % Plt Count 150 151 (150-375) k/mm3 Lymph # (Auto) 0.85 L 1.17 (0.9-3.2) K/mm3 [place] # (Auto) 0.8 H 0.8 H (0.1-0.6) K/mm3 Eos # (Auto) 0.0 0.0 (0-0.3) K/mm3 Baso # (Auto) 0.0 0.0 (0.0-0.1) K/mm3 Comprehensive Metabolic Panel 05/29/24 Range/Units 11:09 Sodium 134 L (137-145) mmol/L Potassium 4.3 (3.4-5.0) mmol/L Chloride 100 (98-107) mmol/L Carbon Dioxide 25 (22-30) mmol/L BUN 15 (9-20) mg/dL Creatinine 0.70 (0.7-1.3) mg/dL Glucose 345 H (65-110) mg/dL Calcium 9.4 (8.4-10.2) mg/dL AST 47 (17-59) U/L ALT 32 (6-50) U/L Alkaline Phosphatase 98 (38-126) U/L Total Protein 8.0 (6.3-8.2) g/dL Albumin 4.7 (3.5-5.1) g/dL Intake and Output 05/29/24 05/29/24 05/29/24 07:59 15:59 23:59 Intake Total 1000 Balance 1000 Intake: IV 1000 Sodium Chloride 0.9% IV 1,000 1000 ml @ 999 mls/hr IV CONT .Q1H1M STA Rx#:[id number] Patient Weight 05/29/24 23:59 Weight 106.8 kg
--- NOTE | 2024-05-29 20:03 | PC.NURSE ---
This RN attempted to call report to IMU and was told RN needs to call back for report.
--- NOTE | 2024-05-29 20:26 | PC.NURSE ---
Per ED business office technology instructorNehal pt to go to floor without calling report.
[2024-05-29 22:23] LABS: Prothrombin Time 13.8 Seconds (11.1-14.7)
[2024-05-29 22:24] LABS: Partial Thromboplastin Time 50.7 Seconds (22.3-36.8)
--- NOTE | 2024-05-29 23:06 | ADMGEN ---
This patient, Josse Strickland, was admitted to IMU Room 200-01. Patient/family oriented to hospital policies and general routines including ID bracelet, bed and alarms, visiting hours, pain management, procedures, bathroom and other care routines, personal items, smoking policy, room service/diet, and visiting hours. Information on how to activate the Rapid Response Team has been discussed. Patient/Family are encouraged to report perceived risks to care and to ask questions if they do not understand what they are told or what they should do.
[2024-05-29] MEDS: INSULIN GLARGINE (*BKC) 100 UNITS/ML 27 UNITS SUB-Q (23:24)
[2024-05-29] MEDS: METOPROLOL TARTRATE 25 MG TABLET PO (23:25)
[2024-05-30] VITALS (18 sets, daily range): BP systolic 127–149; BP diastolic 82–90; PULSE 69–86; RESP 12–20; TEMP 36.4–36.8; O2SAT 97–100
[2024-05-30 05:47] LABS: Basophils Percent Auto 0.3 % (0.2-1.2); Eosinophils Absolute Auto 0.1 K/mm3 (0-0.3); Eosinophils Percent Auto 0.8 % (0-4.4); Hematocrit 38.7 % (42.0-52.0); Hemoglobin 13.6 g/dL (14.0-18.0); Immature Granulocyte Absolute 0.02 K/mm3 (0.00-0.031); Immature Granulocyte Percent A 0.3 % (0-0.5); Immature Platelet Fraction Pct 4.2 % (0.9-11.2); Lymphocytes Absolute Auto 1.13 K/mm3 (0.9-3.2); Lymphocytes Percent Auto 14.6 % (18.3-44.2); Mean Corpuscular HGB Conc 35.1 g/dl (32-36); Mean Corpuscular Volume 88.2 fl (80-100); Mean Platelet Volume 10.8 fl (7.4-10.4); Monocytes Absolute Auto 0.8 K/mm3 (0.1-0.6); Monocytes Percent Auto 10.5 % (2.6-8.5); Neutrophils Absolute Auto 5.7 K/mm3 (1.3-6.7); Neutrophils Percent Auto 73.5 % (45.5-73.1); Platelet Count Result 134 k/mm3 (150-375); Red Blood Count 4.39 M/mm3 (4.6-6.20); Red Cell Distribution Width 12.1 % (11.5-14.5); White Blood Count 7.8 K/mm3 (4.5-10.0)
[2024-05-30 05:57] LABS: Alanine Aminotransferase 36 U/L (6-50); Albumin Level 3.6 g/dL (3.5-5.1); Alkaline Phosphatase 88 U/L (38-126); Anion Gap 0 mmol/L (4-12); Aspartate Amino Transferase 54 U/L (17-59); Bilirubin,Total 1.5 mg/dL (0.2-1.3); Blood Urea Nitrogen 12 mg/dL (9-20); Calcium 8.5 mg/dL (8.4-10.2); Carbon Dioxide 26 mmol/L (22-30); Chloride 105 mmol/L (98-107); Cholesterol 184 mg/dL (0-200); Estimated CRCL calculation 155 ml/min; Estimated Glomerular Filt Rate > 60; Glucose 254 mg/dL (65-110); HDL Direct 47 mg/dL; Potassium 3.9 mmol/L (3.4-5.0); Sodium 131 mmol/L (137-145); Triglycerides 81 mg/dL (<150)
[2024-05-30 06:08] LABS: Glucose Point of Care 350 mg/dl (65-105)
[2024-05-30 06:08] LABS: LDL Cholesterol Direct 115 mg/dL
[2024-05-30 06:09] LABS: Partial Thromboplastin Time 140.4 Seconds (22.3-36.8)
[2024-05-30] MEDS: SODIUM CHLORIDE 0.9% IV 1,000 ML 150 ML IV CONT ×2 (06:30→13:12)
[2024-05-30 07:45] LABS: Glucose Point of Care 248 mg/dl (65-105)
--- NOTE | 2024-05-30 09:03 | ECG_ITS ---
Test Date: 2024-05-30 09:45:43 Measurements Intervals [place] Rate: 73 P: 31 [place]: 141 QRS: 9 QRSD: 97 T: -68 QT: 435 QTc: 481 Interpretive Statements SINUS RHYTHM RECENT INF-LAT MD Compared to ECG 05/29/2024 19:05:18 NO SIGNIFICANT CHNAGE SEEN Electronically Signed On 05-30-2024 16:06:43 [employer] MANAGER by Anna Thrasher
[2024-05-30] MEDS: ASPIRIN 81 MG CHEWABLE TABLET PO (09:07)
[2024-05-30] MEDS: INSULIN ASPART (*BKC) 100 UNITS/ML SUB-Q ×3 (09:08→17:24)
[2024-05-30] MEDS: METOPROLOL TARTRATE 25 MG TABLET PO ×2 (09:08→20:28)
--- NOTE | 2024-05-30 09:09 | P.PNIM_ITS ---
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 Qualified Code(s): E11.65 - Type 2 diabetes mellitus with hyperglycemia Code(s): E11.9 - Type 2 diabetes mellitus without complications Status: Acute (3) Acute hyperglycemia: Code(s): R73.9 - Hyperglycemia, unspecified Status: Acute (4) Hypertension: Qualifiers: Hypertension type: unspecified Qualified Code(s): I10 - Essential (primary) hypertension Code(s): I10 - Essential (primary) hypertension Status: Acute (5) Cerebrovascular accident: Qualifiers: CVA mechanism: unspecified Qualified Code(s): I63.9 - Cerebral infarction, unspecified Code(s): I63.9 - Cerebral infarction, unspecified Status: Acute Plan 54 y/o M presents here with left-sided facial droop and dysarthria with no significant (known) past medical history. had left-sided facial droop, numbness to left hand, and slurred speech. The patient was last seen at his baseline at 9:00 p.m. last night (05/28). Per the patient's , she noted he that he had a mild left facial droop around 6:00 a.m (05/29). She did not notice any dysarthria. Patient also reports noticing that he had numbness/odd sensation to the tips of his left fingers which lasted for approximately 30 minutes and resolved without intervention (1) NSTEMI (non-ST elevated myocardial infarction): Code(s): I21.4 - Non-ST elevation (NSTEMI) myocardial infarction Status: Acute Assessment and Plan: - EKG, initial: Sinus rhythm, rate 98, possible left atrial enlargement, inferior IN of indeterminate age, anterolateral IN of indeterminate age. No previous EKG available for comparison, awaiting formal read. - EKG, repeat (1): Sinus rhythm, rate 83, possible left atrial enlargement, inferior IN of indeterminate age, anterolateral IN probably recent. Reading acute IN. awaiting formal read, however ED provider reviewed EKG and does not believe patient has acute IN/acute ST elevations. - CXR: clear lungs - Troponin: 2.0 -> 3.1 -> 3.8 - ASA 324 given, SL nitro PRN - cardiology consulted, awaiting recs - started on heparin gtt - add lipid panel - echo w/bubble study and TSH ordered (c/f CVA as well, see below) - no stress test or cardiac catheterization on file - heart healthy, NPO at midnight in case of need for procedures - telemetry monitoring with admission to IMU 05/30 The patient has no chest pain, palpitation, shortness breath. Appreciate cardiology consultation. Patient declines invasive evaluation. Will continue heparin drip per cardiology's recommendation. May stop in 48-72hour. Pending echocardiogram (2) Cerebrovascular accident: Qualifiers: CVA mechanism: unspecified Qualified Code(s): I63.9 - Cerebral infarction, unspecified Code(s): I63.9 - Cerebral infarction, unspecified Status: Acute Assessment and Plan: New deficits of left facial droop and dysarthria starting on 05/29 noted around 6-7 a.m. Last known well at 9:00 p.m. on 05/28/2024. - admission for observation and telemetry - not candidate for thrombolytics due to timeframe - not candidate for thrombectomy, no LVO on CTA - CTA 1. CTA head and neck. Percent stenosis per NASCET criteria is 10 % bilaterally. 2. No definite intracranial vascular occlusion or significant narrowing. - neurology consulted, awaiting formal recs Follow-up brain MRI ordered Follow-up echo w/Bubble ordered - neuro checks Q4 - speech/swallow eval, patient refusal - PT/OT to eval and treat, patient refusal - monitor daily labs - add lipid panel, A1C completed and elevated (see below) - bed rest, fall precautions - start Atorvastatin 40 mg PO and ASA 81 mg daily. - currently requiring heparin drip for NSTEMI, will hold on initiating Plavix. - consider 30 day event monitoring at discharge 05/30: Select patient has resolved, weakness of left arm and left leg also have resolved. Patient still has left facial droop CONNIE? 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 A1C 11.2% on 05/29/24. - hypoglycemia protocol - POC blood glucose ACHS - start Lantus 27u (0.25 units/kg, based off BMI) - correct regimen ordered - moderate dose TIDWM, based off BMI - critical care educator consulted - dietitian consulted Better controlled, but not controlled in the target range. Add prandial insulin 5 unit, continue basal insulin and sliding scale 05/30 Hypertension: Qualifiers: Hypertension type: unspecified Qualified Code(s): I10 - Essential (primary) hypertension Code(s): I10 - Essential (primary) hypertension Status: Acute Assessment and Plan: Hypertension permission is over - started on Lopressor 25 mg b.i.d. Blood pressure is controlled Code Status: Full code Subjective Date/time seen: 05/30/24 09:09 Interval history: I saw and examined the patient today. Patient states he is feeling better, denies headache, vision change, slurred speech has resolved, weakness of left arm and leg also has resolved. Patient is afebrile, blood pressure stable. Exam Narrative: GENERAL: Pleasant, in no acute distress. Well-nourished. - EYES: EOMI. Anicteric. - HENT: Moist mucous membranes. Left fa cial droop - LUNGS: Clear to auscultation bilateral ly, no wheezing, rhonchi, or rales. - CARDIOVASCULAR: Regular rate and rhyth m. No murmur. No JVD. - ABDOMEN: Soft, non-tender and non-dist ended. No palpable masses. - EXTREMITIES: No edema. Peripheral puls es 2+. Non-tender. - NEUROLOGIC: No focal neurological defi cits. CN II-XII grossly intact. - PSYCHIATRIC: Awake, Alert and oriented x 3. Appropriate mood and affect. - SKIN: No rashes or lesions. Warm. - LYMPH: No cervical lymphadenopathy. Objective Data Vital Signs Vital Signs: Vital Signs - 24 hr 05/29/24 10:53 05/29/24 10:59 05/29/24 11:58 Temperature 97.4 F L Pulse Rate 109 H 104 H 104 H Respiratory Rate 22 H 17 20 Blood Pressure 185/113 H 185/113 H 181/107 H Pulse Oximetry 98 98 Oxygen Delivery Room Air 05/29/24 11:59 05/29/24 11:59 05/29/24 12:07 Temperature Pulse Rate 102 H 102 H 82 Respiratory Rate 30 H 22 H Blood Pressure 181/107 H 150/103 H Pulse Oximetry 98 Oxygen Delivery 05/29/24 12:17 05/29/24 13:09 05/29/24 14:21 Temperature Pulse Rate 80 81 93 Respiratory Rate 22 H 20 16 Blood Pressure 152/122 H 144/118 H 162/98 H Pulse Oximetry 100 99 Oxygen Delivery 05/29/24 16:28 05/29/24 16:28 05/29/24 16:33 Temperature Pulse Rate 86 75 Respiratory Rate Blood Pressure 159/88 H Pulse Oximetry Oxygen Delivery 05/29/24 16:33 05/29/24 16:38 05/29/24 16:39 Temperature Pulse Rate 73 Respiratory Rate Blood Pressure 148/88 H 136/91 H Pulse Oximetry Oxygen Delivery 05/29/24 19:28 05/29/24 19:29 05/29/24 20:00 Temperature 97.6 F Pulse Rate 76 76 88 Respiratory Rate 15 15 16 Blood Pressure 137/111 H 137/111 H 122/72 Pulse Oximetry 98 98 99 Oxygen Delivery 05/29/24 20:02 05/29/24 22:00 05/29/24 23:25 Temperature Pulse Rate 82 87 80 Respiratory Rate 15 Blood Pressure 139/84 Pulse Oximetry 100 Oxygen Delivery 05/30/24 00:00 05/30/24 00:00 05/30/24 02:00 Temperature 97.8 F Pulse Rate 81 80 70 Respiratory Rate 16 Blood Pressure 127/82 Pulse Oximetry 97 Oxygen Delivery 05/30/24 04:00 05/30/24 04:00 05/30/24 06:00 Temperature 97.8 F Pulse Rate 75 69 71 Respiratory Rate 16 Blood Pressure 134/82 Pulse Oximetry 98 Oxygen Delivery 05/30/24 08:00 Temperature 98.0 F Pulse Rate 72 Respiratory Rate 12 Blood Pressure 136/88 Pulse Oximetry 98 Oxygen Delivery Intake/Output Intake/Output: Intake & Output 12/03/1205/28/24 05/29/24 05/30/24 23:59 23:59 23:59 23:59 Intake Total 1957.8 1596.8 Balance 1957.8 1596.8 Meds/Results Medications: Active Medications Generic Name Dose Route Start Last Admin Trade Name Freq PRN Reason Stop Dose Admin Acetaminophen 650 mg 05/29/24 15:49 Acetaminophen 325 Mg Tablet PO Q4H PRN Mild Pain (1-3) or Fever Aspirin 81 mg 05/30/24 08:00 Aspirin 81 Mg Chewable Tablet PO DAILY@0800 [facility] Atorvastatin Calcium 80 mg 05/31/24 09:00 Atorvastatin 40 Mg Tablet PO DAILY REE Dextrose 12.5 gm 05/29/24 17:29 Dextrose 50% 25 Gm/50 Ml Syringe IV PUSH PRN PRN Hypoglycemia Protocol Glucagon 1 mg 05/29/24 17:29 Glucagon For Inj 1 Mg Vial IM PRN PRN Hypoglycemia Protocol Glucose 15 gm 05/29/24 17:29 Glucose Oral Gel 15 Gm Of Glucse In 37.5 Gm Tube PO PRN PRN Hypoglycemia Protocol Heparin Sodium (Porcine) 4,000 units 05/29/24 15:20 05/29/24 23:32 Heparin Sodium 5,000 Units/Ml Vial IV PUSH 4,000 units PRN PRN Administration aPTT less than 55 seconds Heparin Sodium (Porcine) 3,500 units 05/29/24 15:20 Heparin Sodium 5,000 Units/Ml Vial IV PUSH PRN PRN aPTT 55 - 70 seconds Heparin Sodium/Dextrose 25,000 units in 250 mls @ 11 mls/hr 05/29/24 15:20 05/30/24 07:30 Heparin Sodium/D5w 100 Units/Ml IV CONT 1,100 units/hr .[id number] REE 11 mls/hr Titration Protocol 1,100 UNITS/HR Sodium Chloride 1,000 mls @ 150 mls/hr 05/29/24 15:50 05/30/24 06:30 Normal Saline Iv IV CONT 150 mls/hr .[id number] REE Administration Dextrose 1,000 mls @ 100 mls/hr 05/29/24 17:29 Dextrose 5% 1,000 Ml IVPB PRN PRN Hypoglycemia Protocol Insulin Aspart 3 - 6 units 05/30/24 08:00 Insulin Aspart (*Bkc) 100 Units/Ml SUB-Q TIDWM [facility] Protocol Insulin Glargine 27 units 05/29/24 21:00 05/29/24 23:24 Insulin Glargine (*Bkc) 100 Units/Ml 0.25 units/kg (27 units) 27 units SUB-Q Administration HS REE Metoprolol Tartrate 25 mg 05/29/24 21:00 05/29/24 23:25 Metoprolol Tartrate 25 Mg Tablet PO 25 mg Q12HR REE Administration Nitroglycerin 0.4 mg 05/29/24 17:26 Nitroglycerin Sl 0.4 Mg Tablet SUBLINGUAL Q5MIN PRN Chest Pain Perflutren Lipid Microsphere 0 ml 05/29/24 17:22 Perflutren Lipid Microspheres 1.5 Ml Vial Diluted To 10 Ml Total Volume IV PUSH 06/01/24 17:22 ONCE PRN adequate visualization Protocol Perflutren Lipid Microsphere 0 ml 05/30/24 09:01 Perflutren Lipid Microspheres 1.5 Ml Vial Diluted To 10 Ml Total Volume IV PUSH 06/02/24 09:01 ONCE PRN adequate visualization Protocol Radiology Results: ITS Impressions Chest X-Ray 05/29/24 11:34 Impression: Clear lungs. Head/Neck CTA 05/29/24 12:48 IMPRESSION: 1. CTA head and neck. Percent stenosis per NASCET criteria is 10 % bilaterally. 2. No definite intracranial vascular occlusion or significant narrowing. Labs Labs: Laboratory Results - last 24 hr 05/29/24 05/29/24 05/29/24 11:09 11:12 11:45 WBC 8.9 RBC 5.37 Hgb 16.9 Hct 47.1 MCV 87.7 MCH 31.5 MCHC 35.9 RDW 12.1 Plt Count 150 MPV 10.4 Immature Gran % (Auto) 0.2 Neut % (Auto) 81.6 H Lymph % (Auto) 9.6 L [place] % (Auto) 8.5 Eos % (Auto) 0.0 Baso % (Auto) 0.1 L Lymph # (Auto) 0.85 L [place] # (Auto) 0.8 H Eos # (Auto) 0.0 Baso # (Auto) 0.0 Abs Immat Gran (auto) 0.02 Absolute Neuts (auto) 7.2 H Absolute Nucleated RBC 0.000 Nucleated RBC % 0.0 % Immature Plt Fraction PT 13.1 INR 1.0 APTT 25.3 VBG pH 7.356 VBG pCO2 44.4 VBG pO2 32.5 L VBG HCO3 24.3 O2 Delivery Device Room air O2 Liters/Min 0.0 FiO2 21 Sodium 134 L Potassium 4.3 Chloride 100 Carbon Dioxide 25 Anion Gap 9 BUN 15 Creatinine 0.70 Estim Creat Clear Calc 119 Estimated GFR > 60 Glucose 345 H POC Capillary Glucose 353 H Hemoglobin A1c 11.2 H Calcium 9.4 Total Bilirubin 1.5 H AST 47 ALT 32 Alkaline Phosphatase 98 Troponin I 2.000 H* Total Protein 8.0 Albumin 4.7 Triglycerides Cholesterol LDL Cholesterol Direct HDL Direct Beta-Hydroxybutyrate/Acetoacetate 0.71 H TSH (Reflex) Urine Color Urine Appearance Urine pH Ur Specific [place] Urine Protein Urine Glucose (UA) Urine Ketones Ur Blood (Man) Urine Nitrate Urine Bilirubin Urine Urobilinogen Add Ur Microanalysis Leukocyte Esterase Rfl Urine RBC Urine WBC Ur Squamous Epith Cells Urine Bacteria Urine Casts 05/29/24 05/29/24 05/29/24 13:07 14:45 15:36 WBC RBC Hgb Hct MCV MCH MCHC RDW Plt Count MPV Immature Gran % (Auto) Neut % (Auto) Lymph % (Auto) [place] % (Auto) Eos % (Auto) Baso % (Auto) Lymph # (Auto) [place] # (Auto) Eos # (Auto) Baso # (Auto) Abs Immat Gran (auto) Absolute Neuts (auto) Absolute Nucleated RBC Nucleated RBC % % Immature Plt Fraction PT INR APTT VBG pH VBG pCO2 VBG pO2 VBG HCO3 O2 Delivery Device O2 Liters/Min FiO2 Sodium Potassium Chloride Carbon Dioxide Anion Gap BUN Creatinine Estim Creat Clear Calc Estimated GFR Glucose POC Capillary Glucose 275 H Hemoglobin A1c Calcium Total Bilirubin AST ALT Alkaline Phosphatase Troponin I 3.100 H* D Total Protein Albumin Triglycerides Cholesterol LDL Cholesterol Direct HDL Direct Beta-Hydroxybutyrate/Acetoacetate TSH (Reflex) Urine Color Yellow Urine Appearance Clear Urine pH 5.5 Ur Specific [place] > 1.045 H Urine Protein 1+ H Urine Glucose (UA) 3+ H Urine Ketones 2+ H Ur Blood (Man) Negative Urine Nitrate Negative Urine Bilirubin Negative Urine Urobilinogen 0.2 Add Ur Microanalysis Reviewed Leukocyte Esterase Rfl Negative Urine RBC 0-2 Urine WBC 0-5 Ur Squamous Epith Cells None seen Urine Bacteria None seen Urine Casts 0-2 05/29/24 05/29/24 05/29/24 16:36 19:11 21:52 WBC 8.5 RBC 5.05 Hgb 16.0 Hct 44.3 MCV 87.7 MCH 31.7 MCHC 36.1 H RDW 12.1 Plt Count 151 MPV 10.8 H Immature Gran % (Auto) 0.4 Neut % (Auto) 76.4 H Lymph % (Auto) 13.8 L [place] % (Auto) 9.0 H Eos % (Auto) 0.2 Baso % (Auto) 0.2 Lymph # (Auto) 1.17 [place] # (Auto) 0.8 H Eos # (Auto) 0.0 Baso # (Auto) 0.0 Abs Immat Gran (auto) 0.03 Absolute Neuts (auto) 6.5 Absolute Nucleated RBC 0.000 Nucleated RBC % 0.0 % Immature Plt Fraction PT INR APTT VBG pH VBG pCO2 VBG pO2 VBG HCO3 O2 Delivery Device O2 Liters/Min FiO2 Sodium Potassium Chloride Carbon Dioxide Anion Gap BUN Creatinine Estim Creat Clear Calc Estimated GFR Glucose POC Capillary Glucose 350 H Hemoglobin A1c Calcium Total Bilirubin AST ALT Alkaline Phosphatase Troponin I 3.820 H* D Total Protein Albumin Triglycerides Cholesterol LDL Cholesterol Direct HDL Direct Beta-Hydroxybutyrate/Acetoacetate TSH (Reflex) Urine Color Urine Appearance Urine pH Ur Specific [place] Urine Protein Urine Glucose (UA) Urine Ketones Ur Blood (Man) Urine Nitrate Urine Bilirubin Urine Urobilinogen Add Ur Microanalysis Leukocyte Esterase Rfl Urine RBC Urine WBC Ur Squamous Epith Cells Urine Bacteria Urine Casts 05/29/24 05/30/24 05/30/24 22:04 05:38 07:42 WBC 7.8 RBC 4.39 L Hgb 13.6 L Hct 38.7 L MCV 88.2 MCH 31.0 MCHC 35.1 RDW 12.1 Plt Count 134 L MPV 10.8 H Immature Gran % (Auto) 0.3 Neut % (Auto) 73.5 H Lymph % (Auto) 14.6 L [place] % (Auto) 10.5 H Eos % (Auto) 0.8 Baso % (Auto) 0.3 Lymph # (Auto) 1.13 [place] # (Auto) 0.8 H Eos # (Auto) 0.1 Baso # (Auto) 0.0 Abs Immat Gran (auto) 0.02 Absolute Neuts (auto) 5.7 Absolute Nucleated RBC 0.000 Nucleated RBC % 0.0 % Immature Plt Fraction 4.2 PT 13.8 INR 1.0 APTT 50.7 H 140.4 H VBG pH VBG pCO2 VBG pO2 VBG HCO3 O2 Delivery Device O2 Liters/Min FiO2 Sodium 131 L Potassium 3.9 Chloride 105 Carbon Dioxide 26 Anion Gap 0 L BUN 12 Creatinine 0.60 L Estim Creat Clear Calc 155 Estimated GFR > 60 Glucose 254 H POC Capillary Glucose 248 H Hemoglobin A1c Calcium 8.5 Total Bilirubin 1.5 H AST 54 ALT 36 Alkaline Phosphatase 88 Troponin I Total Protein 6.0 L Albumin 3.6 Triglycerides 81 Cholesterol 184 LDL Cholesterol Direct 115 HDL Direct 47 Beta-Hydroxybutyrate/Acetoacetate TSH (Reflex) 2.740 Urine Color Urine Appearance Urine pH Ur Specific [place] Urine Protein Urine Glucose (UA) Urine Ketones Ur Blood (Man) Urine Nitrate Urine Bilirubin Urine Urobilinogen Add Ur Microanalysis Leukocyte Esterase Rfl Urine RBC Urine WBC Ur Squamous Epith Cells Urine Bacteria Urine Casts
[2024-05-30] MEDS: PERFLUTREN LIPID MICROSPHERES 1.5 ML VIAL DILUTED TO 10 ML TOTAL VOLUME IV PUSH (09:45)
[2024-05-30 11:44] LABS: Glucose Point of Care 190 mg/dl (65-105)
--- NOTE | 2024-05-30 11:58 | PM.PNCARD ---
Progress Note: A&P Assessment and Plan (1) NSTEMI (non-ST elevated myocardial infarction): Code(s): I21.4 - Non-ST elevation (NSTEMI) myocardial infarction Status: Acute (2) Hypertension: Qualifiers: Hypertension type: unspecified Qualified Code(s): I10 - Essential (primary) hypertension Code(s): I10 - Essential (primary) hypertension Status: Acute Plan 1. NSTEMI CARLI Score 3 2. Hypertension 3. Hyperlipidemia 4. Newly diagnosed diabetes mellitus, his HbA1c 11.2 5. Suspected CVA - Patient declined any invasive evaluation. Understood the risks of not pursuing any invasive evaluation whihc includes and is not limited to re-infarction, readmission, or even - Continue heparin infusion for 48-72 hours - Will add plavix to aspirin for mgt of NSTEMI as he declined any further invasive workup - Echo pending - Continue asa and lipitor - Continue low dose metoprolol - BP not to be decreased further, consider permissive hypertension for a few days in view of recent CVA - Rest as per primary/neurology Subjective Date/time seen: 05/30/24 11:58 Interval history: No chest pain, dyspnea BP better controlled Occ PVCs on tele Review of Systems Review of Systems: All systems reviewed & are unremarkable except as noted in HPI and below Exam Narrative: GENERAL APPEARANCE: WELL-DEVELOPED, WELL-NOURISHED SKIN: NORMAL COLOR HEAD: NORMOCEPHALIC, NONTRAUMATIC EYES: CLEAR CONJUNCTIVA ENT: OROPHARYNX NORMAL, EARS NORMAL, NOSE NORMAL NECK: SUPPLE, NONTENDER CHEST AND RESPIRATORY: AIRWAY PATENT, NO RESPIRATORY DISTRESS, NO ACCESSORY MUSCLE USE HEART: REGULAR RATE/RHYTHM ABDOMEN: SOFT, NONTENDER, NO ORGANOMEGALY, QUIET BOWEL SOUNDS VASCULAR: NORMAL PERIPHERAL PULSES, NORMAL CAPILLARY REFILL. MUSCULOSKELETAL: NORMAL RANGE OF MOTION, NONTENDER BACK NEUROLOGIC: ALERT AND ORIENTED ?3, SLIGHT LEFT FACIAL DROOPING, NO GROSS MOTOR DEFICIT Const: General: comfortable and no acute distress Other: , male, nontoxic appearance HENMT: Face/Nose/Sinus: Normal nares present Mouth: Yes moist mucous membranes Eyes: General: appearance normal, both eyes and all related structures Sclera: sclerae normal Pupils: Equal, round and reactive pupils present EOM: EOMs intact bilaterally Resp: Effort & Inspection: normal respiratory effort Auscultation: clear to auscultation bilaterally Cardio: Rate: regular rate Rhythm: regular rhythm Other: S1-S2 present without murmur, rub, ectopy GI: Other: Abdomen soft, nondistended, nontender. Normoactive bowel sounds in all quadrants. Skin: General skin exam: normal color and no rashes or lesions noted Other: Healing wound with no active drainage or erythema to medial malleolus of right lower extremity. Neuro: Cranial nerves: Yes Equal, round and reactive pupils present Other: Initial NIHSS 1a: Level of Consciousness 0 1b: LOC Questions 0 1c:?LOC Tasks 0 2:?Best Gaze 0 3:?Visual?[place] 0 4: Facial Palsy 1 (minimal left facial droop) 5a: Motor Arm?R 0 5b: Motor Arm L 0 6a:?Motor Leg R 0 6a:?Motor Leg L 0 7: Limb Ataxia 0 8: Sensation 0 9:?Language/Aphasia 0 10:?Dysarthria? 0 11: Extinction and Inattention 0 Total: 1 Patient moving all extremities, A&O x4, no numbness or tingling. Very slight facial droop to left with no flattening of the nasolabial fold. No gaze palsy. horizontal nystagmus (patient denied dizziness) noted with gaze exam. Extrem: General: normal to inspection Psych: Mental Status: mental status grossly normal Affect: Hostile affect present Attitude: Belligerent attititude/behavior present Objective Data Vital Signs Vital Signs: Vital Signs - 24 hr 05/29/24 11:59 05/29/24 11:59 05/29/24 12:07 Temperature Pulse Rate 102 H 102 H 82 Respiratory Rate 30 H 22 H Blood Pressure 181/107 H 150/103 H Pulse Oximetry 98 05/29/24 12:17 05/29/24 13:09 05/29/24 14:21 Temperature Pulse Rate 80 81 93 Respiratory Rate 22 H 20 16 Blood Pressure 152/122 H 144/118 H 162/98 H Pulse Oximetry 100 99 05/29/24 16:28 05/29/24 16:28 05/29/24 16:33 Temperature Pulse Rate 86 75 Respiratory Rate Blood Pressure 159/88 H Pulse Oximetry 05/29/24 16:33 05/29/24 16:38 05/29/24 16:39 Temperature Pulse Rate 73 Respiratory Rate Blood Pressure 148/88 H 136/91 H Pulse Oximetry 05/29/24 19:28 05/29/24 19:29 05/29/24 20:00 Temperature 36.4 C Pulse Rate 76 76 88 Respiratory Rate 15 15 16 Blood Pressure 137/111 H 137/111 H 122/72 Pulse Oximetry 98 98 99 05/29/24 20:02 05/29/24 22:00 05/29/24 23:25 Temperature Pulse Rate 82 87 80 Respiratory Rate 15 Blood Pressure 139/84 Pulse Oximetry 100 05/30/24 00:00 05/30/24 00:00 05/30/24 02:00 Temperature 36.6 C Pulse Rate 81 80 70 Respiratory Rate 16 Blood Pressure 127/82 Pulse Oximetry 97 05/30/24 04:00 05/30/24 04:00 05/30/24 06:00 Temperature 36.6 C Pulse Rate 75 69 71 Respiratory Rate 16 Blood Pressure 134/82 Pulse Oximetry 98 05/30/24 08:00 05/30/24 09:08 05/30/24 11:51 Temperature 36.7 C 36.4 C Pulse Rate 72 78 71 Respiratory Rate 12 20 Blood Pressure 136/88 144/89 H Pulse Oximetry 98 100 Intake/Output Intake/Output: Intake & Output 05/27/24 05/28/24 05/29/24 05/30/24 23:59 23:59 23:59 23:59 Intake Total 1957.8 1596.8 Balance 1957.8 1596.8 Meds/Results Medications: Active Medications Generic Name Dose Route Start Last Admin Trade Name Freq PRN Reason Stop Dose Admin Acetaminophen 650 mg 05/29/24 15:49 Acetaminophen 325 Mg Tablet PO Q4H PRN Mild Pain (1-3) or Fever Aspirin 81 mg 05/30/24 08:00 05/30/24 09:07 Aspirin 81 Mg Chewable Tablet PO 81 mg DAILY@0800 REE Administration Atorvastatin Calcium 80 mg 05/31/24 09:00 Atorvastatin 40 Mg Tablet PO DAILY [facility] Dextrose 12.5 gm 05/29/24 17:29 Dextrose 50% 25 Gm/50 Ml Syringe IV PUSH PRN PRN Hypoglycemia Protocol Glucagon 1 mg 05/29/24 17:29 Glucagon For Inj 1 Mg Vial IM PRN PRN Hypoglycemia Protocol Glucose 15 gm 05/29/24 17:29 Glucose Oral Gel 15 Gm Of Glucse In 37.5 Gm Tube PO PRN PRN Hypoglycemia Protocol Heparin Sodium (Porcine) 4,000 units 05/29/24 15:20 05/29/24 23:32 Heparin Sodium 5,000 Units/Ml Vial IV PUSH 4,000 units PRN PRN Administration aPTT less than 55 seconds Heparin Sodium (Porcine) 3,500 units 05/29/24 15:20 Heparin Sodium 5,000 Units/Ml Vial IV PUSH PRN PRN aPTT 55 - 70 seconds Heparin Sodium/Dextrose 25,000 units in 250 mls @ 11 mls/hr 05/29/24 15:20 05/30/24 07:30 Heparin Sodium/D5w 100 Units/Ml IV CONT 1,100 units/hr .[id number] REE 11 mls/hr Titration Protocol 1,100 UNITS/HR Sodium Chloride 1,000 mls @ 150 mls/hr 05/29/24 15:50 05/30/24 06:30 Normal Saline Iv IV CONT 150 mls/hr .[id number] REE Administration Dextrose 1,000 mls @ 100 mls/hr 05/29/24 17:29 Dextrose 5% 1,000 Ml IVPB PRN PRN Hypoglycemia Protocol Insulin Aspart 3 - 6 units 05/30/24 08:00 05/30/24 09:08 Insulin Aspart (*Bkc) 100 Units/Ml SUB-Q 3 units TIDWM REE Administration Protocol Insulin Glargine 27 units 05/29/24 21:00 05/29/24 23:24 Insulin Glargine (*Bkc) 100 Units/Ml 0.25 units/kg (27 units) 27 units SUB-Q Administration [facility] Metoprolol Tartrate 25 mg 05/29/24 21:00 05/30/24 09:08 Metoprolol Tartrate 25 Mg Tablet PO 25 mg Q12HR REE Administration Nitroglycerin 0.4 mg 05/29/24 17:26 Nitroglycerin Sl 0.4 Mg Tablet SUBLINGUAL Q5MIN PRN Chest Pain Perflutren Lipid Microsphere 0 ml 05/29/24 17:22 Perflutren Lipid Microspheres 1.5 Ml Vial Diluted To 10 Ml Total Volume IV PUSH 06/01/24 17:22 ONCE PRN adequate visualization Protocol Perflutren Lipid Microsphere 0 ml 05/30/24 09:01 Perflutren Lipid Microspheres 1.5 Ml Vial Diluted To 10 Ml Total Volume IV PUSH 06/02/24 09:01 ONCE PRN adequate visualization Protocol Radiology Results: ITS Impressions Chest X-Ray 05/29/24 11:34 Impression: Clear lungs. Head/Neck CTA 05/29/24 12:48 IMPRESSION: 1. CTA head and neck. Percent stenosis per NASCET criteria is 10 % bilaterally. 2. No definite intracranial vascular occlusion or significant narrowing. Labs Labs: Laboratory Results - last 24 hr 05/29/24 05/29/24 05/29/24 11:09 13:07 14:45 WBC RBC Hgb Hct MCV MCH MCHC RDW Plt Count MPV Immature Gran % (Auto) Neut % (Auto) Lymph % (Auto) [place] % (Auto) Eos % (Auto) Baso % (Auto) Lymph # (Auto) [place] # (Auto) Eos # (Auto) Baso # (Auto) Abs Immat Gran (auto) Absolute Neuts (auto) Absolute Nucleated RBC Nucleated RBC % % Immature Plt Fraction PT INR APTT Sodium Potassium Chloride Carbon Dioxide Anion Gap BUN Creatinine Estim Creat Clear Calc Estimated GFR Glucose POC Capillary Glucose Hemoglobin A1c 11.2 H Calcium Total Bilirubin AST ALT Alkaline Phosphatase Troponin I 3.100 H* D Total Protein Albumin Triglycerides Cholesterol LDL Cholesterol Direct HDL Direct Beta-Hydroxybutyrate/Acetoacetate 0.71 H TSH (Reflex) Urine Color Yellow Urine Appearance Clear Urine pH 5.5 Ur Specific [place] > 1.045 H Urine Protein 1+ H Urine Glucose (UA) 3+ H Urine Ketones 2+ H Ur Blood (Man) Negative Urine Nitrate Negative Urine Bilirubin Negative Urine Urobilinogen 0.2 Add Ur Microanalysis Reviewed Leukocyte Esterase Rfl Negative Urine RBC 0-2 Urine WBC 0-5 Ur Squamous Epith Cells None seen Urine Bacteria None seen Urine Casts 0-2 05/29/24 05/29/24 05/29/24 15:36 16:36 19:11 WBC 8.5 RBC 5.05 Hgb 16.0 Hct 44.3 MCV 87.7 MCH 31.7 MCHC 36.1 H RDW 12.1 Plt Count 151 MPV 10.8 H Immature Gran % (Auto) 0.4 Neut % (Auto) 76.4 H Lymph % (Auto) 13.8 L [place] % (Auto) 9.0 H Eos % (Auto) 0.2 Baso % (Auto) 0.2 Lymph # (Auto) 1.17 [place] # (Auto) 0.8 H Eos # (Auto) 0.0 Baso # (Auto) 0.0 Abs Immat Gran (auto) 0.03 Absolute Neuts (auto) 6.5 Absolute Nucleated RBC 0.000 Nucleated RBC % 0.0 % Immature Plt Fraction PT INR APTT Sodium Potassium Chloride Carbon Dioxide Anion Gap BUN Creatinine Estim Creat Clear Calc Estimated GFR Glucose POC Capillary Glucose 275 H Hemoglobin A1c Calcium Total Bilirubin AST ALT Alkaline Phosphatase Troponin I 3.820 H* D Total Protein Albumin Triglycerides Cholesterol LDL Cholesterol Direct HDL Direct Beta-Hydroxybutyrate/Acetoacetate TSH (Reflex) Urine Color Urine Appearance Urine pH Ur Specific [place] Urine Protein Urine Glucose (UA) Urine Ketones Ur Blood (Man) Urine Nitrate Urine Bilirubin Urine Urobilinogen Add Ur Microanalysis Leukocyte Esterase Rfl Urine RBC Urine WBC Ur Squamous Epith Cells Urine Bacteria Urine Casts 05/29/24 05/29/24 05/30/24 21:52 22:04 05:34 WBC RBC Hgb Hct MCV MCH MCHC RDW Plt Count MPV Immature Gran % (Auto) Neut % (Auto) Lymph % (Auto) [place] % (Auto) Eos % (Auto) Baso % (Auto) Lymph # (Auto) [place] # (Auto) Eos # (Auto) Baso # (Auto) Abs Immat Gran (auto) Absolute Neuts (auto) Absolute Nucleated RBC Nucleated RBC % % Immature Plt Fraction PT 13.8 INR 1.0 APTT 50.7 H Sodium Potassium Chloride Carbon Dioxide Anion Gap BUN Creatinine Estim Creat Clear Calc Estimated GFR Glucose POC Capillary Glucose 350 H Hemoglobin A1c Calcium Total Bilirubin AST ALT Alkaline Phosphatase Troponin I 3.180 H* Total Protein Albumin Triglycerides Cholesterol LDL Cholesterol Direct HDL Direct Beta-Hydroxybutyrate/Acetoacetate TSH (Reflex) Urine Color Urine Appearance Urine pH Ur Specific [place] Urine Protein Urine Glucose (UA) Urine Ketones Ur Blood (Man) Urine Nitrate Urine Bilirubin Urine Urobilinogen Add Ur Microanalysis Leukocyte Esterase Rfl Urine RBC Urine WBC Ur Squamous Epith Cells Urine Bacteria Urine Casts 05/30/24 05/30/24 05/30/24 05:38 07:42 11:39 WBC 7.8 RBC 4.39 L Hgb 13.6 L Hct 38.7 L MCV 88.2 MCH 31.0 MCHC 35.1 RDW 12.1 Plt Count 134 L MPV 10.8 H Immature Gran % (Auto) 0.3 Neut % (Auto) 73.5 H Lymph % (Auto) 14.6 L [place] % (Auto) 10.5 H Eos % (Auto) 0.8 Baso % (Auto) 0.3 Lymph # (Auto) 1.13 [place] # (Auto) 0.8 H Eos # (Auto) 0.1 Baso # (Auto) 0.0 Abs Immat Gran (auto) 0.02 Absolute Neuts (auto) 5.7 Absolute Nucleated RBC 0.000 Nucleated RBC % 0.0 % Immature Plt Fraction 4.2 PT INR APTT 140.4 H Sodium 131 L Potassium 3.9 Chloride 105 Carbon Dioxide 26 Anion Gap 0 L BUN 12 Creatinine 0.60 L Estim Creat Clear Calc 155 Estimated GFR > 60 Glucose 254 H POC Capillary Glucose 248 H 190 H Hemoglobin A1c Calcium 8.5 Total Bilirubin 1.5 H AST 54 ALT 36 Alkaline Phosphatase 88 Troponin I Total Protein 6.0 L Albumin 3.6 Triglycerides 81 Cholesterol 184 LDL Cholesterol Direct 115 HDL Direct 47 Beta-Hydroxybutyrate/Acetoacetate TSH (Reflex) 2.740 Urine Color Urine Appearance Urine pH Ur Specific [place] Urine Protein Urine Glucose (UA) Urine Ketones Ur Blood (Man) Urine Nitrate Urine Bilirubin Urine Urobilinogen Add Ur Microanalysis Leukocyte Esterase Rfl Urine RBC Urine WBC Ur Squamous Epith Cells Urine Bacteria Urine Casts
--- NOTE | 2024-05-30 12:13 | PCSTNOTE ---
Patient refused Speech Therapy evaluation for swallowing. RN present and aware.
--- NOTE | 2024-05-30 12:16 | IVDEFINITY ---
Prior to administration of IV Definity the patient was educated on the risks and benefits of the imaging enhancing agent including potential adverse side effects. The patient verbalized understanding. Allergies were verified. No exclusion criteria were identified and at least one of the following inclusion criteria were met: 1) physician request, 2) patient technically difficult to image (per the [place] [employer] Echocardi[employer] guidelines of two or more segments not discernable within the apical view), or 3) questionable left ventricular function. ?
[2024-05-30 12:54] LABS: Partial Thromboplastin Time 46.9 Seconds (22.3-36.8)
[2024-05-30] MEDS: HEPARIN SODIUM 5,000 UNITS/ML VIAL 4000 UNITS IV PUSH (13:22)
[2024-05-30] MEDS: CLOPIDOGREL BISULFATE 300 MG TABLET 600 MG PO (13:22)
[2024-05-30] MEDS: HEPARIN SOD/D5W 100 UNITS/ML 25,000 UNITS/250 ML BAG 15 UNITS IV CONT ×2 (13:24→15:02)
--- NOTE | 2024-05-30 13:56 | P.CONNEU_ITS ---
Assessment and Plan Assessment and plan (1) Right sided cerebral hemisphere cerebrovascular accident (CVA): Code(s): I63.9 - Cerebral infarction, unspecified Status: Acute Assessment and Plan: neurology findings are more less resolved however MRI does show a new infarct in the right hemisphere. He required treatment with a dual antiplatelets and statins at this time. Particularly this is more relevant in view of the finding of coronary disease for which he is also being evaluated by installation technician. CT angiogram of the head and neck was performed did not show any significant abnormalities. LDL was 115. He requires close follow-up and management of risk factors including diabetes mellitus hypertension. Date on 1 should also look into possible sleep apnea syndrome. 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 The symptoms were mild and apparently they improved quickly. He is a at this time feeling fairly well. Also he was found to have abnormal EKG and a suspected of having a recent to inferior wall myocardial infarction for which he is being evaluated by installation technician. Also has been found to have diabetes mellitus and hypertension. Patient was not aware of any of these before he presented to the hospital and now all these are being taking care of. He is a teacher at the high school. Patient's and family members were present the time. Patient's mother has diabetes mellitus. I noted that his troponin level was high and LDL was also high at 115. He denies any other symptoms. History of prior stroke. Denies any difficulty swallowing or speech or any specific weakness in upper lower limbs at this time. No diplopia. No loss of vision. No headache. Review of Systems 2 Review of Systems: All systems reviewed & are unremarkable except as noted in HPI and below PMFSH Past Medical History Medical History (Updated 05/30/24 @ 13:59 by Brant Grigsby MD) Right sided cerebral hemisphere cerebrovascular accident (CVA) Family History Family History Mother Hypertension Diabetes mellitus Cardiac dysrhythmia Father Hypertension Cerebrovascular accident Grandparent Dementia Social History Social History Smoking status: Never smoker Alcohol intake: current Drinks per week: 4 Substance use: never Do You Feel Safe in your Home?: Yes Lack of Transportation: No Lack of Food: Never True Current Housing: I Have Housing Concerned About Future Housing: No Difficulty Paying Gas/Electric Bills: No Difficulty Paying for Meds: No Currently Unemployed: No Education: Bachelor's Degree Difficulty w/ Childcare or Family Care: No Spiritual care concerns: No Meds Home Medications and Allergies Home Medications ?Medication ?Instructions ?Recorded ?Confirmed ?Type No Home Medications 05/30/24 05/30/24 History Allergies Allergy/AdvReac Type Severity Reaction Status Date / Time No Known Allergies Allergy Verified 05/29/24 10:59 Vital Signs Vital Signs - 24 hr 05/29/24 14:21 05/29/24 16:28 05/29/24 16:28 Temperature Pulse Rate 93 86 Respiratory Rate 16 Blood Pressure 162/98 H 159/88 H Pulse Oximetry 99 05/29/24 16:33 05/29/24 16:33 05/29/24 16:38 Temperature Pulse Rate 75 Respiratory Rate Blood Pressure 148/88 H 136/91 H Pulse Oximetry 05/29/24 16:39 05/29/24 19:28 05/29/24 19:29 Temperature Pulse Rate 73 76 76 Respiratory Rate 15 15 Blood Pressure 137/111 H 137/111 H Pulse Oximetry 98 98 05/29/24 20:00 05/29/24 20:02 05/29/24 22:00 Temperature 97.6 F Pulse Rate 88 82 87 Respiratory Rate 16 15 Blood Pressure 122/72 139/84 Pulse Oximetry 99 100 05/29/24 23:25 05/30/24 00:00 05/30/24 00:00 Temperature 97.8 F Pulse Rate 80 81 80 Respiratory Rate 16 Blood Pressure 127/82 Pulse Oximetry 97 05/30/24 02:00 05/30/24 04:00 05/30/24 04:00 Temperature 97.8 F Pulse Rate 70 75 69 Respiratory Rate 16 Blood Pressure 134/82 Pulse Oximetry 98 05/30/24 06:00 05/30/24 08:00 05/30/24 08:00 Temperature 98.0 F Pulse Rate 71 72 69 Respiratory Rate 12 Blood Pressure 136/88 Pulse Oximetry 98 05/30/24 09:08 05/30/24 10:00 05/30/24 11:51 Temperature 97.6 F Pulse Rate 78 74 71 Respiratory Rate 20 Blood Pressure 144/89 H Pulse Oximetry 100 05/30/24 12:00 Temperature Pulse Rate 83 Respiratory Rate Blood Pressure Pulse Oximetry Exam 2 Const: General: cooperative, well developed and alert O rientation/consciousness: patient oriented x3 HENMT: Head: atraumatic Eyes: Alignment and Position: position normal Pupils: Equal, round and reactive pupils present EOM: EOMs intact bilaterally Neck: Neck: supple Resp: Effort & Inspection: normal respiratory effort Auscultation: clear to auscultation bilaterally Neuro: General: patient oriented x3 Cranial nerves: Yes CN's II-XII intact bilaterally, Yes facial sensation intact/muscles of mastication intact, Yes Equal, round and reactive pupils present, Yes facial symmetry and Yes Midline tongue present Cognition (Neuro): normal cognition Speech: normal speech Motor exam (neuro): 5/5 motor strength present throughout Sensory Exam: n ormal sensation Coordination: [id number] test normal and Normal rapid alternating movements of the distal upper extremity present (Neuro) Results Labs 05/30/24 05:38 05/30/24 05:38 Labs: Short CBC 05/29/24 05/30/24 Range/Units 16:36 05:38 WBC 8.5 7.8 (4.5-10.0) K/mm3 Hgb 16.0 13.6 L (14.0-18.0) g/dL Hct 44.3 38.7 L (42.0-52.0) % Plt Count 151 134 L (150-375) k/mm3 [facility] 05/30/24 05:38 Sodium 131 L Potassium 3.9 Chloride 105 Carbon Dioxide 26 BUN 12 Creatinine 0.60 L Glucose 254 H Calcium 8.5 Cardiac Enzymes 05/29/24 05/29/24 05/30/24 Range/Units 14:45 19:11 05:34 Troponin I 3.100 H* D 3.820 H* D 3.180 H* (0.000-0.034) ng/mL Liver Function 05/30/24 Range/Units 05:38 Total Bilirubin 1.5 H (0.2-1.3) mg/dL AST 54 (17-59) U/L ALT 36 (6-50) U/L Alkaline Phosphatase 88 (38-126) U/L Albumin 3.6 (3.5-5.1) g/dL
[2024-05-30 16:08] LABS: Glucose Point of Care 245 mg/dl (65-105)
--- NOTE | 2024-05-30 17:22 | ECHO_ITS ---
Patient Info Name: Josse Strickland Age: 54 years : 1970 Gender: Male Ht: 74 in Wt: 235 lbs BSA: 2.38 m2 HR: 71 bpm BP: 134 / 82 mmHg Technical Quality: Poor Exam Date: 05/30/2024 9:11 AM Exam Location: Echo Lab Patient Status: Inpatient Admit Date: 05/29/2024 Staff Ordering Physician: Tiffanie Brooks APRN Pit Shoveler: Paty Hwang RDCS Attending Provider: Eli Hoffmann MD Referring Physician: Cecilia HICKEY; Exam Type: CA echo dop bubble study w con Study Info Indications - LEFT SIDED DEFICITS C/F FOR CVA - NSTEMI Complete two-dimentional, color flow and Doppler transthoracic echocardiogram is performed with agitated saline and with contrast to opacify the left ventricle and to improve the delineation of the left ventricle endocardial borders. Contrast/Agitated Saline Contrast/Ag. Saline: Agitated Saline Amount: 20.00 ml Existing IV Access: Yes Contrast/Ag. Saline: Definity Amount: 2.00 ml Existing IV Access: Yes Reason for Poor Study: poor echocardiographic windows Summary 1. Left ventricular chamber dimension is normal. 2. There is moderately increased left ventricular wall thickness. 3. Left ventricular systolic function is severely reduced with an ejection fraction by Biplane Method of Discs of 23 %. 4. Left ventricular septal wall motion shows inf wall akinesis, hypokinesis of the ant-lat segment, ant-septal, inf-septal segments. 5. Grade I diastolic dysfunction of the left ventricle (impaired relaxation pattern). 6. No patent ovale evident (PFO) by agitated saline imaging. 7. Right ventricular chamber dimension is normal. 8. Right ventricular systolic function is normal. 9. There is no aortic valve stenosis with a peak velocity of 98 cm/s, mean gradient of 2 mmHg, and aortic valve area of 2.9 cm2. Left Ventricle Left ventricular chamber dimension is normal. There is moderately increased left ventricular wall thickness. Left ventricular systolic function is severely reduced with an ejection fraction by Biplane Method of Discs of 23 %. Left ventricular septal wall motion shows inf wall akinesis, hypokinesis of the ant-lat segment, ant-septal, inf-septal segments. Grade I diastolic dysfunction of the left ventricle (impaired relaxation pattern). Right Ventricle Right ventricular chamber dimension is normal. Right ventricular systolic function is normal. Left Atria Left atrial chamber dimension is normal. Right Atria Right atrial chamber dimension is normal. Atrial Septum No patent ovale evident (PFO) by agitated saline imaging. Aortic Valve The aortic valve is trileaflet. There is no aortic valve regurgitation. There is no aortic valve stenosis with a peak velocity of 98 cm/s, mean gradient of 2 mmHg, and aortic valve area of 2.9 cm2. Pulmonic Valve There is no pulmonic regurgitation. Mitral Valve The mitral valve has normal leaflets. There is trace mitral valve regurgitation. There is no mitral valve stenosis. Tricuspid Valve There is no tricuspid valve regurgitation. Inferior Vena Cava Inferior vena cava is not well visualized. Aorta The prox ascending aorta size is normal. The ascending aorta arch size is normal. Left Ventricular Outflow Tract Name Value Normal LVOT 2D LVOT Diameter 2.2 cm LVOT Doppler LVOT Peak Gradient 2 mmHg LVOT Mean Gradient 1 mmHg LVOT VTI 14 cm LVOT VTI/AV VTI Ratio 0.7 LVOT Stroke Volume 54 ml LVOT CO 4.0 l/min LVOT CI 1.7 l/min/m2 Pulmonic Valve Name Value Normal RVOT Doppler RVOT Peak Gradient 2 mmHg PV Doppler PV Peak Gradient 2 mmHg Mitral Valve Name Value Normal MV Doppler MV Peak Gradient 4 mmHg MV Mean Gradient 2 mmHg MV Decel Juab 423 cm/s2 MV PHT 44 ms MV Area (PHT) 5.0 cm2 4.0-5.0 MV Area (Cont Eq VTI) 2.2 cm2 MV Diastolic Function MV E Peak Velocity 64 cm/s MV A Peak Velocity 95 cm/s MV E/A 0.7 MV Decel Time 150 ms MV Annular TDI MV E/e' (Septal) 10.6 <=8.0 MV E/e' (Lateral) 11.8 <=8.0 MV E/e' (Average) 11.2 Tricuspid Valve Name Value Normal Estimated PAP/RSVP RA Pressure 10 mmHg <=5 Aorta Name Value Normal Ascending Aorta Ao Root Diameter (MM) 3.9 cm Ao Root Diam Index (MM) 1.6 cm/m2 Aortic Valve Name Value Normal AV Doppler AV Peak Velocity 98 cm/s AV Peak Gradient 4 mmHg AV Mean Gradient 2 mmHg AV VTI 19 cm AV Area (Cont Eq VTI) 2.9 cm2 >=3.0 AV Area (Cont Eq Juan Jose) 2.8 cm2 AV Regurgitation 2D LVOT Area 3.9 cm2 Ventricles Name Value Normal LV Dimensions 2D/MM IVS Diastolic Thickness (2D) 1.5 cm 0.6-1.0 LVID Diastole (2D) 5.4 cm 4.2-5.8 LVIW Diastolic Thickness (2D) 1.4 cm 0.6-1.0 LVID Systole (2D) 4.6 cm 2.5-4.0 LVOT Diameter 2.2 cm LV Mass (2D Cubed) 342.69 g 88.00-224.00 LV Mass Index (2D Cubed) 144 g/m2 49-115 Relative Wall Thickness (2D) 0.53 LV Fractional Shortening/Ejection Fraction 2D/MM LV Fractional Shortening (2D) 24 % 25-43 LV EF (2D Teicholz) 45 % 52-72 LV Diastolic Volume (4C MOD) 127 ml LV EF (4C MOD) 30 % LV Diastolic Volume (2C MOD) 73 ml LV EF (2C MOD) 22 % LV Diastolic Volume (BP MOD) 97 ml 62-150 LV Diastolic Volume Index (BP MOD) 41 ml/m2 34-74 LV Systolic Volume (BP MOD) 75 ml 21-61 LV Systolic Volume Index (BP MOD) 32 ml/m2 11-31 LV EF (BP MOD) 23 % 52-72 LV Diastolic Length (4C) 8.8 cm LV Systolic Length (4C) 7.9 cm LV Stroke Volume (4C MOD) 38 ml Atria Name Value Normal LA Dimensions LA Dimension (MM) 3.2 cm 3.0-4.1 LA Volume (4C A-L) 49 ml LA Volume (BP A-L) 52 ml RA Dimensions RA Area (4C) 15.1 cm2 <=18.0 Report Signatures
[2024-05-30 18:34] LABS: Partial Thromboplastin Time 90.8 Seconds (22.3-36.8)
[2024-05-30 20:12] LABS: Glucose Point of Care 145 mg/dl (65-105)
[2024-05-30] MEDS: INSULIN GLARGINE (*BKC) 100 UNITS/ML 27 UNITS SUB-Q (20:29)
[2024-05-31] VITALS (12 sets, daily range): BP systolic 134–153; BP diastolic 87–90; PULSE 64–80; RESP 16–20; TEMP 36.5–36.8; O2SAT 99–100; BMI 30.4
[2024-05-31 00:52] LABS: Partial Thromboplastin Time 111.3 Seconds (22.3-36.8)
[2024-05-31 08:04] LABS: Partial Thromboplastin Time 66.9 Seconds (22.3-36.8)
[2024-05-31 08:12] LABS: Glucose Point of Care 152 mg/dl (65-105)
--- NOTE | 2024-05-31 08:30 | P.PNCA_ITS ---
Progress Note: A&P Assessment and Plan (1) NSTEMI (non-ST elevated myocardial infarction): Code(s): I21.4 - Non-ST elevation (NSTEMI) myocardial infarction Status: Acute (2) Hypertension: Qualifiers: Hypertension type: unspecified Qualified Code(s): I10 - Essential (primary) hypertension Code(s): I10 - Essential (primary) hypertension Status: Acute Plan 1. NSTEMI CARLI Score 3 2. Hypertension 3. Hyperlipidemia 4. Newly diagnosed diabetes mellitus, his HbA1c 11.2 5. CVA 6. New onset Cardiomyopathy NYHA II, STage C EF 23% - Discussed an invasive evaluation with the patient again. Suspect he may have 3VD and also communicated that to the patient and his . Patient declined any invasive evaluation again. Understood the risks of not pursuing any invasive evaluation which includes and is not limited to re-infarction, readmission, HF, arrhythmia or even - Continue heparin infusion for 48-72 hours - Continue DAPT - Continue lipitor 80 - Start Losartan 25 mg OD, continue toprol-XL 25 mg OD - Start Jardiance 10 mg OD, can be discontinued if co-pay issues - Will add MRA as an outpatient - Consider Lifevest at discharge - Rest as per primary/neurology Subjective Date/time seen: 05/31/24 08:30 Interval history: No acute events overnight No chest pain or dyspnea Occ PVCs Review of Systems Review of Systems: All systems reviewed & are unremarkable except as noted in HPI and below Exam Narrative: GENERAL APPEARANCE: WELL-DEVELOPED, WELL-NOURISHED SKIN: NORMAL COLOR HEAD: NORMOCEPHALIC, NONTRAUMATIC EYES: CLEAR CONJUNCTIVA ENT: OROPHARYNX NORMAL, EARS NORMAL, NOSE NORMAL NECK: SUPPLE, NONTENDER CHEST AND RESPIRATORY: AIRWAY PATENT, NO RESPIRATORY DISTRESS, NO ACCESSORY MUSCLE USE HEART: REGULAR RATE/RHYTHM ABDOMEN: SOFT, NONTENDER, NO ORGANOMEGALY, QUIET BOWEL SOUNDS VASCULAR: NORMAL PERIPHERAL PULSES, NORMAL CAPILLARY REFILL. MUSCULOSKELETAL: NORMAL RANGE OF MOTION, NONTENDER BACK NEUROLOGIC: ALERT AND ORIENTED ?3, SLIGHT LEFT FACIAL DROOPING, NO GROSS MOTOR DEFICIT Const: General: comfortable and no acute distress Other: , male, nontoxic appearance HENMT: Face/Nose/Sinus: Normal nares present Mouth: Yes moist mucous membranes Eyes: General: appearance normal, both eyes and all related structures Sclera: sclerae normal Pupils: Equal, round and reactive pupils present EOM: EOMs intact bilaterally Resp: Effort & Inspection: normal respiratory effort Auscultation: clear to auscultation bilaterally Cardio: Rate: regular rate Rhythm: regular rhythm Other: S1-S2 present without murmur, rub, ectopy GI: Other: Abdomen soft, nondistended, nontender. Normoactive bowel sounds in all quad rants. Skin: General skin exam: normal color and no rashes or lesions noted Other: Healing wound with no active drainage or erythema to medial malleolus of right lower extremity. Neuro: Cranial nerves: Yes Equal, round and reactive pupils present Other: Initial NIHSS 1a: Level of Consciousness 0 1b: LOC Questions 0 1c:?LOC Tasks 0 2:?Best Gaze 0 3:?Visual?Quintanilla 0 4: Facial Palsy 1 (minimal left facial d clifford) 5a: Motor Arm?R 0 5b: Motor Arm L 0 6a:?Motor Leg R 0 6a:?Motor Leg L 0 7: Limb Ataxia 0 8: Sensation 0 9:?Language/Aphasia 0 10:?Dysarthria? 0 11: Extinction and Inattention 0 Total: 1 Patient moving all extremities, A&O x4, no numbness or tingling. Very slight facial droop to left with no flattening of the nasolabial fold. No gaze palsy. horizontal nystagmus (patient denied dizziness) noted with gaze exam. Extrem: General: normal to inspection Psych: Mental Status: mental status grossly normal Affect: Hostile affect present Attitude: Belligerent attititude/behavior present Objective Data Vital Signs Vital Signs: Vital Signs - 24 hr 05/30/24 09:08 05/30/24 10:00 05/30/24 11:51 Temperature 36.4 C Pulse Rate 78 74 71 Respiratory Rate 20 Blood Pressure 144/89 H Pulse Oximetry 100 Oxygen Delivery 05/30/24 12:00 05/30/24 14:00 05/30/24 16:00 Temperature 36.8 C Pulse Rate 83 76 79 Respiratory Rate 16 Blood Pressure 141/90 H Pulse Oximetry 97 Oxygen Delivery 05/30/24 16:00 05/30/24 18:00 05/30/24 20:00 Temperature Pulse Rate 79 78 73 Respiratory Rate 16 Blood Pressure Pulse Oximetry 98 Oxygen Delivery Room Air 05/30/24 20:00 05/30/24 20:14 05/30/24 20:28 Temperature 36.5 C Pulse Rate 73 78 78 Respiratory Rate 16 Blood Pressure 149/90 H Pulse Oximetry 98 Oxygen Delivery 05/30/24 22:00 05/30/24 23:23 05/30/24 23:50 Temperature 36.7 C Pulse Rate 86 75 72 Respiratory Rate 16 16 Blood Pressure 141/83 H Pulse Oximetry 99 99 Oxygen Delivery Room Air 05/30/24 23:50 05/31/24 02:00 05/31/24 04:00 Temperature Pulse Rate 72 68 64 Respiratory Rate 16 Blood Pressure Pulse Oximetry 99 Oxygen Delivery Room Air 05/31/24 04:00 05/31/24 06:00 05/31/24 06:25 Temperature 36.8 C Pulse Rate 64 76 75 Respiratory Rate 16 Blood Pressure 153/90 H Pulse Oximetry 99 Oxygen Delivery 05/31/24 07:35 Temperature 36.8 C Pulse Rate 74 Respiratory Rate 18 Blood Pressure 137/87 Pulse Oximetry 100 Oxygen Delivery Intake/Output Intake/Output: Intake & Output 05/28/24 05/29/24 05/30/24 05/31/24 23:59 23:59 23:59 23:59 Intake Total 1958.8 3706.2 1152 Output Total 3 Balance 1958.8 3703.2 1152 Meds/Results Medications: Active Medications Generic Name Dose Route Start Last Admin Trade Name Freq PRN Reason Stop Dose Admin Acetaminophen 650 mg 05/29/24 15:49 Acetaminophen 325 Mg Tablet PO Q4H PRN Mild Pain (1-3) or Fever Aspirin 81 mg 05/30/24 08:00 05/30/24 09:07 Aspirin 81 Mg Chewable Tablet PO 81 mg DAILY@0800 [facility] Administration Atorvastatin Calcium 80 mg 05/31/24 09:00 Atorvastatin 40 Mg Tablet PO DAILY [facility] Clopidogrel Bisulfate 75 mg 05/31/24 09:00 Clopidogrel Bisulfate 75 Mg Tablet PO QAM [facility] Dextrose 12.5 gm 05/29/24 17:29 Dextrose 50% 25 Gm/50 Ml Syringe IV PUSH PRN PRN Hypoglycemia Protocol Glucagon 1 mg 05/29/24 17:29 Glucagon For Inj 1 Mg Vial IM PRN PRN Hypoglycemia Protocol Glucose 15 gm 05/29/24 17:29 Glucose Oral Gel 15 Gm Of Glucse In 37.5 Gm Tube PO PRN PRN Hypoglycemia Protocol Heparin Sodium (Porcine) 4,000 units 05/29/24 15:20 05/30/24 13:22 Heparin Sodium 5,000 Units/Ml Vial IV PUSH 4,000 units PRN PRN Administration aPTT less than 55 seconds Heparin Sodium (Porcine) 3,500 units 05/29/24 15:20 Heparin Sodium 5,000 Units/Ml Vial IV PUSH PRN PRN aPTT 55 - 70 seconds Heparin Sodium/Dextrose 25,000 units in 250 mls @ 13 mls/hr 05/29/24 15:20 05/31/24 02:23 Heparin Sodium/D5w 100 Units/Ml IV CONT Not Given .[id number] REE Protocol 1,300 UNITS/HR Dextrose 1,000 mls @ 100 mls/hr 05/29/24 17:29 Dextrose 5% 1,000 Ml IVPB PRN PRN Hypoglycemia Protocol Insulin Aspart 3 - 6 units 05/30/24 08:00 05/30/24 17:23 Insulin Aspart (*Bkc) 100 Units/Ml SUB-Q 4 units TIDWM REE Administration Protocol Insulin Aspart 5 units 05/30/24 17:00 05/30/24 17:24 Insulin Aspart (*Bkc) 100 Units/Ml 0.05 units/kg (5 units) 5 units SUB-Q Administration TIDWM REE Insulin Glargine 27 units 05/29/24 21:00 05/30/24 20:29 Insulin Glargine (*Bkc) 100 Units/Ml 0.25 units/kg (27 units) 27 units SUB-Q Administration HS REE Losartan Potassium 25 mg 05/31/24 09:00 Losartan Potassium 25 Mg Tablet PO DAILY REE Metoprolol Succinate 25 mg 05/31/24 09:00 Metoprolol Succinate Ext Rel 25 Mg Tabcr PO QAM REE Nitroglycerin 0.4 mg 05/29/24 17:26 Nitroglycerin Sl 0.4 Mg Tablet SUBLINGUAL Q5MIN PRN Chest Pain Perflutren Lipid Microsphere 0 ml 05/30/24 09:01 Perflutren Lipid Microspheres 1.5 Ml Vial Diluted To 10 Ml Total Volume IV PUSH 06/02/24 09:01 ONCE PRN adequate visualization Protocol Radiology Results: ITS Impressions Chest X-Ray 05/29/24 11:34 Impression: Clear lungs. Head/Neck CTA 05/29/24 12:48 IMPRESSION: 1. CTA head and neck. Percent stenosis per NASCET criteria is 10 % bilaterally. 2. No definite intracranial vascular occlusion or significant narrowing. Brain MRI 05/30/24 12:33 IMPRESSION: Acute infarct involving the right insular cortex region and right external capsule. Labs Labs: Laboratory Results - last 24 hr 05/30/24 05/30/24 05/30/24 05:34 11:39 12:28 APTT 46.9 H POC Capillary Glucose 190 H Troponin I 3.180 H* 05/30/24 05/30/24 05/30/24 15:48 18:11 19:38 APTT 90.8 H POC Capillary Glucose 245 H 145 H Troponin I 05/31/24 05/31/24 05/31/24 00:33 07:27 07:33 APTT 111.3 H 66.9 H POC Capillary Glucose 152 H Troponin I
[2024-05-31] MEDS: HEPARIN SODIUM 5,000 UNITS/ML VIAL 3500 UNITS IV PUSH (08:51)
[2024-05-31] MEDS: ATORVASTATIN 40 MG TABLET 80 MG PO (08:52)
[2024-05-31] MEDS: METOPROLOL SUCCINATE EXT REL 25 MG TABCR PO (08:52)
[2024-05-31] MEDS: ASPIRIN 81 MG CHEWABLE TABLET PO (08:52)
[2024-05-31] MEDS: LOSARTAN POTASSIUM 25 MG TABLET PO (08:52)
[2024-05-31] MEDS: CLOPIDOGREL BISULFATE 75 MG TABLET PO (08:52)
[2024-05-31] MEDS: EMPAGLIFLOZIN 10 MG TABLET PO (08:52)
[2024-05-31] MEDS: INSULIN ASPART (*BKC) 100 UNITS/ML SUB-Q ×3 (08:53→17:21)
[2024-05-31] MEDS: HEPARIN SOD/D5W 100 UNITS/ML 25,000 UNITS/250 ML BAG 15 UNITS IV CONT (09:06)
--- NOTE | 2024-05-31 09:43 | PCPTNOTE ---
Attempted PT evaluation, pt is refusing ALL therapy at this time . Pt independent in the room. Hospitalist contacted. Nursing made aware.
--- NOTE | 2024-05-31 11:12 | PCCPR ---
Visited patient today regarding cardiac rehab, program explained and flyer left at bedside regarding cardiac rehab. Patient is very interested but does not have insurance at this time. Informed him that he does not have to start immediately but can wait until he sets up insurance and my call for further questions.
[2024-05-31 12:03] LABS: Glucose Point of Care 165 mg/dl (65-105)
--- NOTE | 2024-05-31 12:39 | PM.IMPN ---
Progress Note: A&P Assessment and Plan (1) NSTEMI (non-ST elevated myocardial infarction): Code(s): I21.4 - Non-ST elevation (NSTEMI) myocardial infarction Status: Acute (2) DM2 (diabetes mellitus, type 2): Qualifiers: Diabetes mellitus assisted insulin use: without assisted use Diabetes mellitus complication status: with hyperglycemia Qualified Code(s): E11.65 - Type 2 diabetes mellitus with hyperglycemia Code(s): E11.9 - Type 2 diabetes mellitus without complications Status: Acute (3) Acute hyperglycemia: Code(s): R73.9 - Hyperglycemia, unspecified Status: Acute (4) Hypertension: Qualifiers: Hypertension type: unspecified Qualified Code(s): I10 - Essential (primary) hypertension Code(s): I10 - Essential (primary) hypertension Status: Acute (5) Cerebrovascular accident: Qualifiers: CVA mechanism: unspecified Qualified Code(s): I63.9 - Cerebral infarction, unspecified Code(s): I63.9 - Cerebral infarction, unspecified Status: Acute Plan 54 y/o M presents here with left-sided facial droop and dysarthria with no significant (known) past medical history. had left-sided facial droop, numbness to left hand, and slurred speech. The patient was last seen at his baseline at 9:00 p.m. (05/28). Per the patient's , she noted he that he had a mild left facial droop around 6:00 a.m (05/29). She did not notice any dysarthria. Patient also reports noticing that he had numbness/odd sensation to the tips of his left fingers which lasted for approximately 30 minutes and resolved without intervention. Workup in the ER: CTA head no definitive intracranial vascular occlusion or significant narrowing. % stenosis 10% bilaterally. Not candidate for thrombolytics due to time frame. Not candidate for thrombectomy. Neurology consulted. Brain MRI showed acute infarct involving the right insular cortex region and right external capsule. On aspirin and statin. LDL 115. Echo with no PF for thrombus Chest x-ray was clear. Initial troponin was also elevated 2-3 0.1-3.[address] elevation [place]. patient was started on heparin drip. Cardiology was consulted. Suggested cardiac catheterization however patient refused. Echocardiogram with severely reduced ejection fraction to 23% inferior wall akinesis hypokinesis of the anterolateral segment anteroseptal inferoseptal segment. Grade 1 diastolic dysfunction of left ventricle. Plavix added for non ST elevation [place]. Along with low-dose metoprolol. Heparin drip for 48-72 hours. Newly diagnosed type 2 diabetes: A1c 11.2 on 05/29/2024 Insulin regimen at discharge suggested follow-up with PCP Possible CONNIE: reporting snoring at night. Refused apnea link study Hypertension Hyperlipidemia Code status full code Subjective Date/time seen: 05/31/24 12:39 Interval history: No overnight events. No new complaints. Wants to go home. No facial drooping or weakness in arms or legs. No chest pain. Review of Systems Review of Systems: All systems reviewed & are unremarkable except as noted in HPI and below Exam Narrative: GENERAL: Pleasant, in no acute distress. Well-nourished. - EYES: EOMI. Anicteric. - HENT: Moist mucous membranes. Left facial droop - LUNGS: Clear to auscultation bilaterally, no wheezing, rhonchi, or rales. - CARDIOVASCULAR: Regular rate and rhythm. No murmur. No JVD. - ABDOMEN: Soft, non-tender and non-distended. No palpable masses. - EXTREMITIES: No edema. Peripheral pulses 2+. Non-tender. - NEUROLOGIC: No focal neurological deficits. CN II-XII grossly intact. - PSYCHIATRIC: Awake, Alert and oriented x 3. Appropriate mood and affect. - SKIN: No rashes or lesions. Warm. - LYMPH: No cervical lymphadenopathy. Objective Data Vital Signs Vital Signs: Vital Signs - 24 hr 05/30/24 14:00 05/30/24 16:00 05/30/24 16:00 Temperature 98.2 F Pulse Rate 76 79 79 Respiratory Rate 16 Blood Pressure 141/90 H Pulse Oximetry 97 Oxygen Delivery 05/30/24 18:00 05/30/24 20:00 05/30/24 20:00 Temperature Pulse Rate 78 73 73 Respiratory Rate 16 Blood Pressure Pulse Oximetry 98 Oxygen Delivery Room Air 05/30/24 20:14 05/30/24 20:28 05/30/24 22:00 Temperature 97.7 F Pulse Rate 78 78 86 Respiratory Rate 16 Blood Pressure 149/90 H Pulse Oximetry 98 Oxygen Delivery 05/30/24 23:23 05/30/24 23:50 05/30/24 23:50 Temperature 98.1 F Pulse Rate 75 72 72 Respiratory Rate 16 16 Blood Pressure 141/83 H Pulse Oximetry 99 99 Oxygen Delivery Room Air 05/31/24 02:00 05/31/24 04:00 05/31/24 04:00 Temperature Pulse Rate 68 64 64 Respiratory Rate 16 Blood Pressure Pulse Oximetry 99 Oxygen Delivery Room Air 05/31/24 06:00 05/31/24 06:25 05/31/24 07:35 Temperature 98.2 F 98.2 F Pulse Rate 76 75 74 Respiratory Rate 16 18 Blood Pressure 153/90 H 137/87 Pulse Oximetry 99 100 Oxygen Delivery 05/31/24 08:00 05/31/24 08:00 05/31/24 10:00 Temperature Pulse Rate 80 77 Respiratory Rate Blood Pressure Pulse Oximetry Oxygen Delivery Room Air 05/31/24 11:39 Temperature 97.7 F Pulse Rate 78 Respiratory Rate 18 Blood Pressure 134/88 Pulse Oximetry 99 Oxygen Delivery Intake/Output Intake/Output: Intake & Output 05/28/24 05/29/24 05/30/24 05/31/24 23:59 23:59 23:59 23:59 Intake Total 1958.8 3706.2 1490.3 Output Total 3 Balance 1958.8 3703.2 1490.3 Meds/Results Medications: Active Medications Generic Name Dose Route Start Last Admin Trade Name Freq PRN Reason Stop Dose Admin Acetaminophen 650 mg 05/29/24 15:49 Acetaminophen 325 Mg Tablet PO Q4H PRN Mild Pain (1-3) or Fever Aspirin 81 mg 05/30/24 08:00 05/31/24 08:52 Aspirin 81 Mg Chewable Tablet PO 81 mg DAILY@0800 REE Administration Atorvastatin Calcium 80 mg 05/31/24 09:00 05/31/24 08:52 Atorvastatin 40 Mg Tablet PO 80 mg DAILY REE Administration Clopidogrel Bisulfate 75 mg 05/31/24 09:00 05/31/24 08:52 Clopidogrel Bisulfate 75 Mg Tablet PO 75 mg QAM REE Administration Dextrose 12.5 gm 05/29/24 17:29 Dextrose 50% 25 Gm/50 Ml Syringe IV PUSH PRN PRN Hypoglycemia Protocol Empagliflozin 10 mg 05/31/24 09:00 05/31/24 08:52 Empagliflozin 10 Mg Tablet PO 10 mg DAILY REE Administration Glucagon 1 mg 05/29/24 17:29 Glucagon For Inj 1 Mg Vial IM PRN PRN Hypoglycemia Protocol Glucose 15 gm 05/29/24 17:29 Glucose Oral Gel 15 Gm Of Glucse In 37.5 Gm Tube PO PRN PRN Hypoglycemia Protocol Heparin Sodium (Porcine) 4,000 units 05/29/24 15:20 05/30/24 13:22 Heparin Sodium 5,000 Units/Ml Vial IV PUSH 4,000 units PRN PRN Administration aPTT less than 55 seconds Heparin Sodium (Porcine) 3,500 units 05/29/24 15:20 05/31/24 08:51 Heparin Sodium 5,000 Units/Ml Vial IV PUSH 3,500 units PRN PRN Administration aPTT 55 - 70 seconds Heparin Sodium/Dextrose 25,000 units in 250 mls @ 15 mls/hr 05/29/24 15:20 05/31/24 09:07 Heparin Sodium/D5w 100 Units/Ml IV CONT 1,500 units/hr .[id number] REE 15 mls/hr Titration Protocol 1,500 UNITS/HR Dextrose 1,000 mls @ 100 mls/hr 05/29/24 17:29 Dextrose 5% 1,000 Ml IVPB PRN PRN Hypoglycemia Protocol Insulin Aspart 3 - 6 units 05/30/24 08:00 05/31/24 12:23 Insulin Aspart (*Bkc) 100 Units/Ml SUB-Q Not Given TIDWM [facility] Protocol Insulin Aspart 5 units 05/30/24 17:00 05/31/24 08:53 Insulin Aspart (*Bkc) 100 Units/Ml 0.05 units/kg (5 units) 5 units SUB-Q Administration TIDWM [facility] Insulin Glargine 27 units 05/29/24 21:00 05/30/24 20:29 Insulin Glargine (*Bkc) 100 Units/Ml 0.25 units/kg (27 units) 27 units SUB-Q Administration HS REE Losartan Potassium 25 mg 05/31/24 09:00 05/31/24 08:52 Losartan Potassium 25 Mg Tablet PO 25 mg DAILY REE Administration Metoprolol Succinate 25 mg 05/31/24 09:00 05/31/24 08:52 Metoprolol Succinate Ext Rel 25 Mg Tabcr PO 25 mg QAM REE Administration Nitroglycerin 0.4 mg 05/29/24 17:26 Nitroglycerin Sl 0.4 Mg Tablet SUBLINGUAL Q5MIN PRN Chest Pain Perflutren Lipid Microsphere 0 ml 05/30/24 09:01 Perflutren Lipid Microspheres 1.5 Ml Vial Diluted To 10 Ml Total Volume IV PUSH 06/02/24 09:01 ONCE PRN adequate visualization Protocol Radiology Results: ITS Impressions Chest X-Ray 05/29/24 11:34 Impression: Clear lungs. Head/Neck CTA 05/29/24 12:48 IMPRESSION: 1. CTA head and neck. Percent stenosis per NASCET criteria is 10 % bilaterally. 2. No definite intracranial vascular occlusion or significant narrowing. Brain MRI 05/30/24 12:33 IMPRESSION: Acute infarct involving the right insular cortex region and right external capsule. Labs Labs: Laboratory Results - last 24 hr 05/30/24 05/30/24 05/30/24 12:28 15:48 18:11 APTT 46.9 H 90.8 H POC Capillary Glucose 245 H 05/30/24 05/31/24 05/31/24 19:38 00:33 07:27 APTT 111.3 H 66.9 H POC Capillary Glucose 145 H 05/31/24 05/31/24 07:33 11:21 APTT POC Capillary Glucose 152 H 165 H
[2024-05-31 15:21] LABS: Partial Thromboplastin Time 106.2 Seconds (22.3-36.8)
[2024-05-31 15:56] LABS: Glucose Point of Care 119 mg/dl (65-105)
--- NOTE | 2024-05-31 16:42 | PM.DS ---
DS: Admitting Diagnosis Discharge Date 05/31/2024 Admitting Diagnosis Facial droop DS: Discharge Diagnosis Discharge Diagnosis (1) NSTEMI (non-ST elevated myocardial infarction): Code(s): I21.4 - Non-ST elevation (NSTEMI) myocardial infarction Status: Acute (2) DM2 (diabetes mellitus, type 2): Qualifiers: Diabetes mellitus complication status: with hyperglycemia Diabetes mellitus terminal worker insulin use: without terminal worker use Qualified Code(s): E11.65 - Type 2 diabetes mellitus with hyperglycemia Code(s): E11.9 - Type 2 diabetes mellitus without complications Status: Acute (3) Acute hyperglycemia: Code(s): R73.9 - Hyperglycemia, unspecified Status: Acute (4) Hypertension: Qualifiers: Hypertension type: unspecified Qualified Code(s): I10 - Essential (primary) hypertension Code(s): I10 - Essential (primary) hypertension Status: Acute (5) Cerebrovascular accident: Qualifiers: CVA mechanism: unspecified Qualified Code(s): I63.9 - Cerebral infarction, unspecified Code(s): I63.9 - Cerebral infarction, unspecified Status: Acute DS: Summary Hospital Course Hospital Course: 54 y/o M presents here with left-sided facial droop and dysarthria with no significant (known) past medical history. had left-sided facial droop, numbness to left hand, and slurred speech. The patient was last seen at his baseline at 9:00 p.m. (05/28). Per the patient's , she noted he that he had a mild left facial droop around 6:00 a.m (05/29). She did not notice any dysarthria. Patient also reports noticing that he had numbness/odd sensation to the tips of his left fingers which lasted for approximately 30 minutes and resolved without intervention. Workup in the ER: CTA head no definitive intracranial vascular occlusion or significant narrowing. % stenosis 10% bilaterally. Not candidate for thrombolytics due to time frame. Not candidate for thrombectomy. Neurology consulted. Brain MRI showed acute infarct involving the right insular cortex region and right external capsule. On aspirin and statin. LDL 115. Echo with no PF for thrombus Chest x-ray was clear. Initial troponin was also elevated 2-3 0.1-3.[address] elevation VT. patient was started on heparin drip. Cardiology was consulted. Suggested cardiac catheterization however patient refused. Echocardiogram with severely reduced ejection fraction to 23% inferior wall akinesis hypokinesis of the anterolateral segment anteroseptal inferoseptal segment. Grade 1 diastolic dysfunction of left ventricle. Plavix added for non ST elevation VT. Along with low-dose metoprolol. Heparin drip for 48-72 hours. [employer] discussed with the patient and agreeable. Was not able to arranged prior to discharge but will be made in next few days at home per [employer] rep. He understands the risk of going without a life vest and still wants to be discharged home. Newly diagnosed type 2 diabetes: A1c 11.2 on 05/29/2024 Insulin regimen at discharge suggested follow-up with PCP. Insulin regimen discussed. educator senior clinical evaluated the patient. Possible CONNIE: reporting snoring at night. Refused apnea link study Hypertension Hyperlipidemia Code status full code Time Spent with Patient Time attestation: Total time spent providing and/or coordinating discharge services: 45 minutes Exam Narrative: GENERAL: Pleasant, in no acute distress. Well-nourished. - EYES: EOMI. Anicteric. - HENT: Moist mucous membranes. No facial droop - LUNGS: Clear to auscultation bilaterally, no wheezing, rhonchi, or rales. - CARDIOVASCULAR: Regular rate and rhythm. No murmur. No JVD. - ABDOMEN: Soft, non-tender and non-distended. No palpable masses. - EXTREMITIES: No edema. Peripheral pulses 2+. Non-tender. - NEUROLOGIC: No focal neurological deficits. CN II-XII grossly intact. - PSYCHIATRIC: Awake, Alert and oriented x 3. Appropriate mood and affect. - SKIN: No rashes or lesions. Warm. - LYMPH: No cervical lymphadenopathy. DS: Data Data Completed and Pending Completed studies during hospitalization: Exam Type: CA echo dop bubble study w con Study Info Indications - LEFT SIDED DEFICITS C/F FOR CVA - NSTEMI Complete two-dimentional, color flow and Doppler transthoracic echocardiogram is performed with agitated saline and with contrast to opacify the left ventricle and to improve the delineation of the left ventricle endocardial borders. Contrast/Agitated Saline Contrast/Ag. Saline: Agitated Saline Amount: 20.00 ml Existing IV Access: Yes Contrast/Ag. Saline: Definity Amount: 2.00 ml Existing IV Access: Yes Reason for Poor Study: poor echocardiographic windows Summary 1. Left ventricular chamber dimension is normal. 2. There is moderately increased left ventricular wall thickness. 3. Left ventricular systolic function is severely reduced with an ejection fraction by Biplane Method of Discs of 23 %. 4. Left ventricular septal wall motion shows inf wall akinesis, hypokinesis of the ant-lat segment, ant-septal, inf-septal segments. 5. Grade I diastolic dysfunction of the left ventricle (impaired relaxation pattern). 6. No patent ovale evident (PFO) by agitated saline imaging. 7. Right ventricular chamber dimension is normal. 8. Right ventricular systolic function is normal. 9. There is no aortic valve stenosis with a peak velocity of 98 cm/s, mean gradient of 2 mmHg, and aortic valve area of 2.9 cm2. Left Ventricle Left ventricular chamber dimension is normal. There is moderately increased left ventricular wall thickness. Left ventricular systolic function is severely reduced with an ejection fraction by Biplane Method of Discs of 23 %. Left ventricular septal wall motion shows inf wall akinesis, hypokinesis of the ant-lat segment, ant-septal, inf-septal segments. Grade I diastolic dysfunction of the left ventricle (impaired relaxation pattern). Right Ventricle Right ventricular chamber dimension is normal. Right ventricular systolic function is normal. Left Atria Left atrial chamber dimension is normal. Right Atria Right atrial chamber dimension is normal. Atrial Septum No patent ovale evident (PFO) by agitated saline imaging. Aortic Valve The aortic valve is trileaflet. There is no aortic valve regurgitation. There is no aortic valve stenosis with a peak velocity of 98 cm/s, mean gradient of 2 mmHg, and aortic valve area of 2.9 cm2. Pulmonic Valve There is no pulmonic regurgitation. Mitral Valve The mitral valve has normal leaflets. There is trace mitral valve regurgitation. There is no mitral valve stenosis. Tricuspid Valve There is no tricuspid valve regurgitation. Inferior Vena Cava Inferior vena cava is not well visualized. Aorta The prox ascending aorta size is normal. The ascending aorta arch size is normal. Labs on day of discharge: Labs from last 24 hours 05/31/24 05/31/24 05/31/24 15:36 14:51 11:21 APTT 106.2 H POC Capillary Glucose 119 H 165 H 05/31/24 05/31/24 05/31/24 07:33 07:27 00:33 APTT 66.9 H 111.3 H POC Capillary Glucose 152 H 05/30/24 05/30/24 19:38 18:11 APTT 90.8 H POC Capillary Glucose 145 H Imaging Radiologist's impression: ITS Impressions Chest X-Ray 05/29/24 11:34 Impression: Clear lungs. Head/Neck CTA 05/29/24 12:48 IMPRESSION: 1. CTA head and neck. Percent stenosis per NASCET criteria is 10 % bilaterally. 2. No definite intracranial vascular occlusion or significant narrowing. Brain MRI 05/30/24 12:33 IMPRESSION: Acute infarct involving the right insular cortex region and right external capsule. Discharge Plan Discharge Attending physician on discharge: Lukas Welsh Consulting providers: Anna Thrasher; Hudson Jose Discharging Clinician: Lukas Welsh Anticipated Discharge Date/Time: 05/31/24 16:36 Patient Disposition: Home, Self-Care Activity: as tolerated Diet: heart healthy and diabetic Discharge Instructions: NSTEMI uncontrolled diabetes, acute stroke Patient Instructions: Antibiotic Form, Metoprolol (By mouth), Nitroglycerin (By mouth), Aspirin (By mouth), Heparin (By injection), Losartan (By mouth), Atorvastatin (By mouth), Clopidogrel (By mouth), Insulin Glargine (By injection), Acute Coronary Syndrome (GEN), Diabetic Hyperglycemia (GEN), High Troponin Levels (GEN) Patient Language: Argentine Stand Alone Forms: General Discharge Information Follow-up/Referrals: Josse Leiva MD [Physician] - 1 Week Hudson Jose MD [Physician] - 4 Weeks UNKNOWN,DOCTOR [Primary Care Provider] - 1 Week (PCP) Discharge Medications: New atorvastatin 40 mg Tablet 80 mg PO DAILY Qty: 30 0RF clopidogrel 75 mg Tablet 75 mg PO QAM Qty: 30 0RF losartan 25 mg Tablet 25 mg PO DAILY Qty: 30 0RF nitroglycerin [Nitrostat] 0.4 mg Tablet, Sublingual 0.4 mg sublingual Q5MIN PRN (Reason: Chest Pain) Qty: 30 0RF aspirin [Children's Aspirin] 81 mg Tablet,Chewable 81 mg PO DAILY@0800 Qty: 30 0RF metoprolol succinate [Toprol XL] 25 mg Tablet Extended Release 24 Hr 25 mg PO QAM Qty: 30 0RF (DME) blood-glucose meter [OneTouch Verio Flex meter] Mis Qty: 1 0RF Rx Instructions: May substitute to in-stock meter and/or covered by insurance. Use As Directed (DME) OneTouch Verio test strips Strip Qty: 1 0RF Rx Instructions: May substitute to in-stock and/or covered by insurance strips. Use As Directed (DME) pen needle, diabetic [BD Ultra-Fine Micro Pen Needle] 32 gauge x 1/4 needle Qty: 1 0RF Rx Instructions: May substitute to meet patient needs. Use As Directed (DME) pen needle, diabetic [BD Ultra-Fine Autumn Pen Needle] 32 gauge x 5/32 needle Qty: 1 0RF Rx Instructions: May substitute to meet patient needs. Use As Directed (DME) insulin syringe-needle U-100 [BD Veo Insulin Syringe UF] 1/2 mL 31 gauge x 15/64 syringe Qty: 1 0RF Rx Instructions: 0.5 mL syringe for doses up to 50 units. May substitute to meet patient needs. Use As Directed (DME) insulin syringe-needle U-100 [BD Veo Insulin Syringe UF] 1 mL 31 gauge x 15/64 syringe Qty: 1 0RF Rx Instructions: 1 mL syringe for doses up to 100 units. May substitute to meet patient needs. Use As Directed (DME) lancets [OneTouch Delica Plus Lancet] [facility] Q[facility]: [facility] 0RF Rx Instructions: May substitute to in-stock and/or covered by insurance lancets. Use As Directed insulin glargine [Lantus Solostar U-100 Insulin] 100 unit/mL (3 mL) insulin pen 24 unit subcut HS Qty: 15 0RF insulin aspart U-100 [Novolog FlexPen U-100 Insulin] 100 unit/mL (3 mL) insulin pen 5 unit subcut TIDWMEAL Qty: 15 0RF Date of admission: 05/29/24 17:34 Primary Care Provider: UNKNOWN,DOCTOR Admitting Provider: Eli Hoffmann Attending physician on admission: Eli Hoffmann Condition: Stable
== END 2024-05-31 19:45 | disposition home or self-care (01) | DRG 190 ==
LOC: ANHED 14:34 → ANHIMU 17:18
PROVIDERS: Internal Medicine; Internal Medicine Interventional Cardiology; Student in an Organized Health Care Education/Training Program; Admitting Provider Hospitalist; Emergency Provider Emergency Medicine; Visit Provider Internal Medicine
DX: I21.4 Non-ST elevation (NSTEMI) myocardial infarction (principal); I63.9 Cerebral infarction, unspecified; I42.9 Cardiomyopathy, unspecified; R29.810 Facial weakness; R47.81 Slurred speech; R29.701 NIHSS score 1; I10 Essential (primary) hypertension; E11.9 Type 2 diabetes mellitus without complications; E78.5 Hyperlipidemia, unspecified
CPT/HCPCS: 36415; 70496; 70498; 70553; 71045; 80053; 80061; 81001; 82010; 82803; 82948; 83036; 84443; 84484; 85025; 85055; 85610; 85730; 93005; 96361; 96374; 96375; 99285; A9270; A9577; C8929; G0378; J1644; J1815; J7030; Q9957; Q9967